=== PATIENT | male | born 1975 | race Caucasian/White ===

== ENCOUNTER 2017-07-12 15:56 | Emergency (ER) | payer BC ==
[2017-07-12] MEDS ORDERED: Sodium Chloride 0.9% 10 ML Syringe FLUSH PRN (16:17)
--- NOTE | 2017-07-12 16:18 | EDM.PDOC ---
ED HPI GENERAL MEDICAL PROBLEM - General Chief Complaint: Cardiovascular Problem Stated Complaint: DIZZY,ISSUES W/BLOOD PRESSURE Time Seen by Provider: 07/12/17 16:16 Source of Information: Reports: Patient, RN Notes Reviewed - History of Present Illness INITIAL COMMENTS - FREE TEXT/NARRATIVE: 42-year-old male comes in with symptoms of nonspecific dizziness. He feels like his blood pressure is likely running high. His does have history of hypertension. He was on medication about a year ago when his prescription ran out he did not get that refilled or do any further follow-up care at the clinic. He also does have history of type 2 diabetes. He has been on metformin in the past but also has run out of that medication quite a long time ago with no further follow-up. He does have mild to moderate frontal headache. States that his vision feels a bit "fuzzy". He's had no nausea or vomiting. No focal weakness or clumsiness. No chest pain or difficulty breathing. No abdominal pain, recent vomiting diarrhea. No voiding symptomatology. - Related Data Allergies Allergy/AdvReac Type Severity Reaction Status Date / Time No Known Allergies Allergy Verified 07/12/17 16:17 Home Meds: Home Meds Lisinopril 20 mg PO DAILY #30 tablet 07/12/17 [Rx] metFORMIN [Glucophage XR] 500 mg PO BIDMEALS #60 tab.er 07/12/17 [Rx] Past Medical History Other Genitourinary History: patient has had problems in past with urinary retention Social & Family History - Tobacco Use Smoking Status *Q: Never Smoker - Recreational Drug Use Recreational Drug Use: No ED ROS GENERAL - Review of Systems Review Of Systems: See Below Constitutional: Denies: Fever, Chills, Diaphoresis HEENT: Denies: Sinus Problem, Throat Pain, Vertigo Respiratory: Denies: Shortness of Breath, Pleuritic Chest Pain Cardiovascular: Denies: Chest Pain GI/Abdominal: Denies: Abdominal Pain, Nausea, Vomiting Musculoskeletal: Denies: Neck Pain, Shoulder Pain, Back Pain Skin: Denies: Rash Neurological: Reports: Headache. Denies: Numbness, Tingling, Trouble Speaking, Difficulty Walking, Weakness ED EXAM, DIZZINESS - Physical Exam Exam: See Below General Appearance: Alert, Mild Distress Eye Exam: Bilateral Eye: PERRL Ears: Normal External Exam Nose: Normal Inspection Throat/Mouth: Normal Inspection, Normal Oropharynx Head Exam: Atraumatic. No: Facial Swelling Neck: Supple, Full Range of Motion, Other. No: Lymphadenopathy (L), Lymphadenopathy (R) Respiratory/Chest: No Respiratory Distress (No JVD), Lungs Clear, Normal Breath Sounds Cardiovascular: Regular Rate, Rhythm GI/Abdominal: Soft, Non-Tender. No: Guarding Neurological: Alert, No Motor/Sensory Deficits, Oriented x 3 Back Exam: Normal Inspection, Full Range of Motion. No: CVA Tenderness (L), CVA Tenderness (R) Extremities: Normal Inspection. No: Pedal Edema, Leg Pain Skin Exam: Warm, Dry, No Rash EKG INTERPRETATION EKG Date: 07/12/17 Rhythm: NSR [place]: Normal P-Wave: Enlarged QRS: Normal ST-T: Normal Course - Vital Signs Last Recorded V/S: Last Vital Signs Temp 98.0 F 07/12/17 16:17 Pulse 77 07/12/17 18:40 Resp 19 07/12/17 16:17 BP 182/106 H 07/12/17 18:40 Pulse Ox 94 L 07/12/17 16:17 - Orders/Labs/Meds Labs: Laboratory Tests 07/12/17 07/12/17 07/12/17 Range/Units 16:25 16:25 17:05 WBC 7.50 (4.23-9.07) K/mm3 RBC 5.61 (4.63-6.08) M/mm3 Hgb 15.7 (13.7-17.5) gm/L Hct 43.8 (40.1-51.0) % MCV 78.1 L (79.0-92.2) fl MCH 28.0 (25.7-32.2) pg MCHC 35.8 H (32.2-35.5) g/dl RDW Std Deviation 37.3 (35.1-43.9) fL Plt Count 212 (163-337) K/mm3 MPV 9.2 L (9.4-12.3) fl Neut % (Auto) 56.9 (34.0-67.9) % Lymph % (Auto) 26.9 (21.8-53.1) % [place] % (Auto) 9.6 (5.3-12.2) % Eos % (Auto) 5.5 (0.8-7.0) Baso % (Auto) 0.7 (0.1-1.2) % Neut # (Auto) 4.27 (1.78-5.38) K/mm3 Lymph # (Auto) 2.02 (1.32-3.57) K/mm3 [place] # (Auto) 0.72 (0.30-0.82) K/mm3 Eos # (Auto) 0.41 (0.04-0.54) K/mm3 Baso # (Auto) 0.05 (0.01-0.08) K/mm3 Sodium 138 (136-145) mEq/L Potassium 3.0 L (3.5-5.1) mEq/L Chloride 100 (98-107) mEq/L Carbon Dioxide 29 (21-32) mEq/L Anion Gap 12.0 (5-15) BUN 16 (7-18) mg/dL Creatinine 1.0 (0.7-1.3) mg/dL Est Cr Clr Drug Dosing 100.38 mL/min Estimated GFR (MDRD) > 60 (>60) mL/min BUN/Creatinine Ratio 16.0 (14-18) Glucose 351 H (74-106) mg/dL POC Glucose (70-105) mg/dL Calcium 9.2 (8.5-10.1) mg/dL Total Bilirubin 0.6 (0.2-1.0) mg/dL AST 30 (15-37) U/L ALT 38 (16-63) U/L Alkaline Phosphatase 73 (46-116) U/L Total Protein 6.4 (6.4-8.2) g/dl Albumin 3.7 (3.4-5.0) g/dl Globulin 2.7 gm/dL Albumin/Globulin Ratio 1.4 (1-2) Urine Color Yellow (Yellow) Urine Appearance Clear (Clear) Urine pH 6.5 (5.0-8.0) Ur Specific [place] 1.020 (1.005-1.030) Urine Protein Trace H (Negative) Urine Glucose (UA) 3+ H (Negative) Urine Ketones Negative (Negative) Urine Occult Blood Trace-intact H (Negative) Urine Nitrite Negative (Negative) Urine Bilirubin Negative (Negative) Urine Urobilinogen 0.2 (0.2-1.0) Ur Leukocyte Esterase Negative (Negative) Urine RBC 5-10 H (0-5) /hpf Urine WBC 0-5 (0-5) /hpf Ur Epithelial Cells 0-5 (0-5) /hpf Urine Bacteria Rare (FEW) /hpf Urine Mucus Few (FEW) /hpf 07/12/17 Range/Units 19:25 WBC (4.23-9.07) K/mm3 RBC (4.63-6.08) M/mm3 Hgb (13.7-17.5) gm/L Hct (40.1-51.0) % MCV (79.0-92.2) fl MCH (25.7-32.2) pg MCHC (32.2-35.5) g/dl RDW Std Deviation (35.1-43.9) fL Plt Count (163-337) K/mm3 MPV (9.4-12.3) fl Neut % (Auto) (34.0-67.9) % Lymph % (Auto) (21.8-53.1) % [place] % (Auto) (5.3-12.2) % Eos % (Auto) (0.8-7.0) Baso % (Auto) (0.1-1.2) % Neut # (Auto) (1.78-5.38) K/mm3 Lymph # (Auto) (1.32-3.57) K/mm3 [place] # (Auto) (0.30-0.82) K/mm3 Eos # (Auto) (0.04-0.54) K/mm3 Baso # (Auto) (0.01-0.08) K/mm3 Sodium (136-145) mEq/L Potassium (3.5-5.1) mEq/L Chloride (98-107) mEq/L Carbon Dioxide (21-32) mEq/L Anion Gap (5-15) BUN (7-18) mg/dL Creatinine (0.7-1.3) mg/dL Est Cr Clr Drug Dosing mL/min Estimated GFR (MDRD) (>60) mL/min BUN/Creatinine Ratio (14-18) Glucose (74-106) mg/dL POC Glucose 266 H (70-105) mg/dL Calcium (8.5-10.1) mg/dL Total Bilirubin (0.2-1.0) mg/dL AST (15-37) U/L ALT (16-63) U/L Alkaline Phosphatase (46-116) U/L Total Protein (6.4-8.2) g/dl Albumin (3.4-5.0) g/dl Globulin gm/dL Albumin/Globulin Ratio (1-2) Urine Color (Yellow) Urine Appearance (Clear) Urine pH (5.0-8.0) Ur Specific [place] (1.005-1.030) Urine Protein (Negative) Urine Glucose (UA) (Negative) Urine Ketones (Negative) Urine Occult Blood (Negative) Urine Nitrite (Negative) Urine Bilirubin (Negative) Urine Urobilinogen (0.2-1.0) Ur Leukocyte Esterase (Negative) Urine RBC (0-5) /hpf Urine WBC (0-5) /hpf Ur Epithelial Cells (0-5) /hpf Urine Bacteria (FEW) /hpf Urine Mucus (FEW) /hpf Meds: Medications Discontinued Medications Generic Name Dose Route Start Last Admin Trade Name Freq PRN Reason Stop Dose Admin Acetaminophen 975 mg 07/12/17 16:30 07/12/17 16:40 Tylenol PO 07/12/17 16:31 975 mg NOW ONE Administration Hydromorphone HCl 0.5 mg 07/12/17 19:47 07/12/17 19:50 Dilaudid IVPUSH 07/12/17 19:48 0.5 mg ONETIME ONE Administration Insulin Human Regular 5 unit 07/12/17 18:21 07/12/17 18:27 Humulin R IVPUSH 07/12/17 18:22 5 units ONETIME ONE Administration Protocol Insulin Human Regular 6 unit 07/13/17 06:00 07/12/17 19:55 Humulin R SUBCUT 6 unit BIDAC MIMI Administration Protocol Insulin Human Regular Confirm 07/12/17 20:00 Humulin R Administered 07/12/17 20:01 Dose 300 unit .ROUTE .STK-MED ONE Labetalol HCl 20 mg 07/12/17 16:30 07/12/17 16:39 Normodyne IVPUSH 07/12/17 16:31 20 mg ONETIME ONE Administration Protocol Labetalol HCl 20 mg 07/12/17 17:09 07/12/17 17:14 Normodyne IVPUSH 07/12/17 17:10 20 mg ONETIME ONE Administration Protocol Labetalol HCl 20 mg 07/12/17 17:49 07/12/17 17:51 Normodyne IVPUSH 07/12/17 17:50 20 mg ONETIME ONE Administration Protocol Labetalol HCl 20 mg 07/12/17 18:29 07/12/17 18:40 Normodyne IVPUSH 07/12/17 18:30 20 mg ONETIME ONE Administration Protocol Lisinopril 10 mg 07/12/17 18:31 07/12/17 18:40 Prinivil PO 07/12/17 18:32 10 mg ONETIME ONE Administration Sodium Chloride 10 ml 07/12/17 16:17 07/12/17 16:39 Saline Flush FLUSH 10 ml ASDIRECTED PRN Administration Keep Vein Open - Re-Assessments/Exams Free Text/Narrative Re-Assessment/Exam: 07/12/17 20:16 Have given multiple doses of labetalol IV. Blood pressures finally come down to the 170/86 range. Glucose came back quite elevated at 350. He admits that he was on metformin in the past about a year or so ago for a period of time but then when his medication ran out did not get that refilled or renewed. It sounds like his diet has been quite horrible not much attention paid to watching his carbs or caloric intake. We did give 5 units regular insulin IV. That did bring his glucose down to 266. Give 6 units regular insulin subcutaneous. I have written a prescription to get back on metformin 500 mg twice a day initial dosage. Also written a prescription for lisinopril 20 mg daily. Asked that he follow-up the clinic hopefully in the next day or 2, next available appointment. Discharge instructions as documented. Departure - Departure Time of Disposition: 19:53 Disposition: Home, Self-Care 01 Condition: Fair Clinical Impression: Hyperglycemia Hypertension Qualifiers: Hypertension type: essential hypertension Qualified Code(s): I10 - Essential ( primary) hypertension - Discharge Information Prescriptions: Lisinopril 20 mg PO DAILY #30 tablet metFORMIN [Glucophage XR] 500 mg PO BIDMEALS #60 tab.er Instructions: Hyperglycemia, [id number], Hypertension Referrals: Manav Franks [Primary Care Provider] - Forms: ED Department Discharge Additional Instructions: Low-calorie low sugar low carbohydrate diet. [facility] does have some excellent dietary guideline information available. I did recommend looking at their website for at least some initial advice. Lisinopril 20 mg daily for hypertension. Metformin 500 mg twice daily for elevated blood sugars. I do recommend getting a blood pressure unit and checking a blood pressure 2 or 3 times daily, Sylvia a log or record for Dr. Mcgovern. Call [phone] in the morning for next available appointment to see dr Mcgovern. Return to ED as needed if symptoms worsening in any way.
[2017-07-12] MEDS ORDERED: Labetalol 100 MG/20 ML MDV IVPUSH ONE ×4 (16:30→18:29)
[2017-07-12] MEDS ORDERED: Acetaminophen 325 MG Tab PO ONE (16:30)
[2017-07-12] MEDS ORDERED: Insulin Regular, Human 100 Units/ML 3 ML Vial IVPUSH ONE (18:21)
[2017-07-12] MEDS ORDERED: Lisinopril 10 MG Tab PO ONE (18:31)
[2017-07-12 18:41] VITALS: BP 182/106
[2017-07-12] MEDS ORDERED: HYDROmorphone 0.5 MG/0.5 ML Syringe IVPUSH ONE (19:47)
[2017-07-12] MEDS ORDERED: Insulin Regular, Human 100 Units/ML 3 ML Vial ONE (20:00)
[2017-07-13] MEDS ORDERED: Insulin Regular, Human 100 Units/ML 3 ML Vial SUBCUT SCH (06:00)
== END 2017-07-12 20:14 | disposition home or self-care (01) ==
LOC: JD.ED 15:56
DX: I10 Essential (primary) hypertension (principal); E11.65 Type 2 diabetes mellitus with hyperglycemia
CPT/HCPCS: 36415; 80053; 81001; 82962; 85025; 93005; 96372; 96374; 96375; 96376; 99284; A9270; J1170; J1817; J7050; J1815

== ENCOUNTER 2017-12-06 10:34 | Emergency (ER) | payer BC ==
[2017-12-06] MEDS ORDERED: Sodium Chloride 0.9% 1,000 ML IV ONE (11:19)
[2017-12-06] MEDS ORDERED: Ondansetron 4 MG/2 ML SDV IVPUSH ONE (11:20)
[2017-12-06] MEDS ORDERED: Dicyclomine 10 MG Cap PO ONE (11:20)
--- NOTE | 2017-12-06 11:25 | EDM.PDOC ---
ED HPI GENERAL MEDICAL PROBLEM - General Chief Complaint: Abdominal Pain Stated Complaint: ABDOMINAL PAIN Time Seen by Provider: 12/06/17 11:00 Source of Information: Reports: Patient History Limitations: Reports: No Limitations - History of Present Illness INITIAL COMMENTS - FREE TEXT/NARRATIVE: Patient is a 42-year-old male presents ED complaining of lower abdominal pain. Patient states this started approximately one hour ago. Described as a tight sensation that comes and goes with no known provocation. She is mildly nauseated. Central emesis. Bowel movement yesterday and described as normal with no blood present. No diarrhea. No fever. No pain with urination. He has a history of strep catheter approximately 4 years ago due to urinary retention. States he normally has a weak flow which is unchanged with recent episode. He has no history constipation. He still has his appendix. He also has a history of non-Hodgkin's lymphoma. Past medical history: Non-Hodgkin's lymphoma, hypertension, diabetes, hypercholesteremia Current medications see list Surgical history: suprapubic catheter, neck biopsy. Patient does not smoke or use recreational drugs. Alcohol use occasionally. Lower Abdominal Pain Score (Numeric/FACES): 6 - Related Data Allergies Allergy/AdvReac Type Severity Reaction Status Date / Time aspirin Allergy Blurred Verified 12/06/17 10:48 Vision Home Meds: Home Meds Lisinopril 20 mg PO DAILY #30 tablet 07/12/17 [Rx] Ondansetron [Zofran ODT] 4 mg PO Q6H PRN #12 tab.dis 12/06/17 [Rx] Potassium Chloride [Klor-Con M20] 2 tab PO QAM #28 tab.er 12/06/17 [Rx] atorvaSTATin [Lipitor] 20 mg PO BEDTIME 12/06/17 [History] metFORMIN [Glucophage XR] 1,000 mg PO BIDMEALS 12/06/17 [History] Past Medical History HEENT History: Reports: Impaired Vision Cardiovascular History: Reports: High Cholesterol, Hypertension Other Genitourinary History: patient has had problems in past with urinary retention Oncologic (Cancer) History: Reports: Non-Hodgkin's Lymphoma, Other (See Below) Other Oncologic History: remission since 2006 Social & Family History - Tobacco Use Smoking Status *Q: Never Smoker - Caffeine Use Caffeine Use: Reports: Soda - Recreational Drug Use Recreational Drug Use: No ED ROS GENERAL - Review of Systems Review Of Systems: ROS reveals no pertinent complaints other than HPI. ED EXAM, GI/ABD - Physical Exam Exam: See Below Exam Limited By: No Limitations General Appearance: Alert, WD/WN, Mild Distress Ears: Hearing Grossly Normal Nose: Normal Inspection Throat/Mouth: Normal Voice, No Airway Compromise Neck: Normal Inspection, Supple Respiratory/Chest: No Respiratory Distress, Lungs Clear, Normal Breath Sounds, No Accessory Muscle Use Cardiovascular: Normal Peripheral Pulses, Regular Rate, Rhythm GI/Abdominal Exam: Soft, No Organomegaly, No Distention, Tender (generalized discomfort with palpation. PMI periumbilical area. ), Other (obese) (Male) Exam: Deferred Rectal (Males) Exam: Deferred Back Exam: Normal Inspection. No: CVA Tenderness (L), CVA Tenderness (R) Extremities: Normal Inspection Neurological: Alert, Oriented, CN II-XII Intact, Normal Cognition, No Motor/ Sensory Deficits Psychiatric: Normal Affect, Normal Mood Skin Exam: Warm, Dry, Intact, Normal Color Course - Vital Signs Last Recorded V/S: Last Vital Signs Temp 98.4 F 12/06/17 10:49 Pulse 89 12/06/17 11:32 Resp 16 12/06/17 10:49 BP 155/90 H 12/06/17 11:32 Pulse Ox 93 L 12/06/17 10:49 - Orders/Labs/Meds Orders: Active Orders 24 hr Category Date Time Status UA W/MICROSCOPIC [URIN] Stat Lab 12/06/17 11:19 Ordered Sodium Chloride 0.9% [Normal Saline] 1,000 ml Med 12/06/17 11:19 Active IV ONETIME Medication Orders Sodium Chloride (Normal Saline) 1,000 mls @ 250 mls/hr IV ONETIME ONE Stop: 12/06/17 15:18 Last Admin: 12/06/17 11:31 Dose: 250 mls/hr Labs: Laboratory Tests 12/06/17 12/06/17 Range/Units 11:00 11:00 WBC 8.16 (4.23-9.07) K/mm3 RBC 5.96 (4.63-6.08) M/mm3 Hgb 16.9 (13.7-17.5) gm/L Hct 46.5 (40.1-51.0) % MCV 78.0 L (79.0-92.2) fl MCH 28.4 (25.7-32.2) pg MCHC 36.3 H (32.2-35.5) g/dl RDW Std Deviation 37.1 (35.1-43.9) fL Plt Count 255 (163-337) K/mm3 MPV 9.8 (9.4-12.3) fl Neutrophils % (Manual) 63 H (40-60) % Band Neutrophils % 1 (0-10) % Lymphocytes % (Manual) 30 (20-40) % Monocytes % (Manual) 1 L (2-10) % Eosinophils % (Manual) 3 (0.8-7.0) % Basophils % (Manual) 2 H (0.2-1.2) Platelet Estimate Adequate RBC Morph Comment Normal Sodium 139 (136-145) mEq/L Potassium 2.8 L (3.5-5.1) mEq/L Chloride 100 (98-107) mEq/L Carbon Dioxide 26 (21-32) mEq/L Anion Gap 15.8 H (5-15) BUN 17 (7-18) mg/dL Creatinine 1.4 H (0.7-1.3) mg/dL Est Cr Clr Drug Dosing 73.96 mL/min Estimated GFR (MDRD) 56 (>60) mL/min BUN/Creatinine Ratio 12.1 L (14-18) Glucose 390 H (74-106) mg/dL Calcium 8.7 (8.5-10.1) mg/dL Total Bilirubin 0.9 (0.2-1.0) mg/dL AST 24 (15-37) U/L ALT 31 (16-63) U/L Alkaline Phosphatase 73 (46-116) U/L C-Reactive Protein 1.5 H* (<1.0) mg/dL Total Protein 6.7 (6.4-8.2) g/dl Albumin 4.0 (3.4-5.0) g/dl Globulin 2.7 gm/dL Albumin/Globulin Ratio 1.5 (1-2) Lipase 866 H (73-393) U/L Meds: Medications Generic Name Dose Route Start Last Admin Trade Name Freq PRN Reason Stop Dose Admin Sodium Chloride 1,000 mls @ 250 mls/hr 12/06/17 11:19 12/06/17 11:31 Normal Saline IV 12/06/17 15:18 250 mls/hr ONETIME ONE Administration Discontinued Medications Generic Name Dose Route Start Last Admin Trade Name John PRN Reason Stop Dose Admin Dicyclomine HCl 10 mg 12/06/17 11:20 12/06/17 11:31 Bentyl PO 12/06/17 11:21 10 mg ONETIME ONE Administration Ondansetron HCl 4 mg 12/06/17 11:20 12/06/17 11:29 Zofran IVPUSH 12/06/17 11:21 4 mg ONETIME ONE Administration Potassium Chloride 40 meq 12/06/17 12:25 12/06/17 12:35 Klor-Con M20 PO 12/06/17 12:26 40 meq ONETIME ONE Administration - Re-Assessments/Exams Free Text/Narrative Re-Assessment/Exam: IV established with and asked. Bentyl 10 mg by mouth and 4 mg IVP Zofran. Labs to be obtained include CBC, chem 14, CRP, lipase, UA, and 2 view of the abdomen x-ray. Labs reviewed: Sodium 139, potassium 2.8, AG 15.8, CO2 normal, creatinine elevated at 1.4, glucose elevated at 390, CRP 1.5, lipase elevated at 866. I have ordered potassium 40 mEq by mouth. In addition patient is a type II diabetic on metformin 500 mg twice a day. Blood sugars are not well-controlled. He is not showing signs of dehydration. Of note at times he does experience some polyuria and polydipsia. Lipase is mildly elevated. He has no epigastric discomfort. I have offered to obtain a CT of the abdomen and pelvis with IV and oral contrast to evaluate cause of the pain. X-ray of the abdomen did reveal findings for increased stool within the colon. Nonspecific air pattern. He has refused ct of the abdomen. Will follow with PCP. I have discussed with the patient lipitor can cause a form of pancreatitis. Orderd mag citrate to be administered here in the E.D. discharge instructions as documented. Departure - Departure Time of Disposition: 12:41 Disposition: Home, Self-Care 01 Condition: Good Clinical Impression: Hypokalemia, Abdominal pain in male, Hyperglycemia Constipation Qualifiers: Constipation type: unspecified constipation type Qualified Code(s): K59.00 - Constipation, unspecified Hyperglycemia due to type 2 diabetes mellitus Qualifiers: Diabetes mellitus pharmacologist insulin use: without pharmacologist use Qualified Code(s ): E11.65 - Type 2 diabetes mellitus with hyperglycemia - Discharge Information Prescriptions: Ondansetron [Zofran ODT] 4 mg PO Q6H PRN #12 tab.dis PRN Reason: Nausea/Vomiting Potassium Chloride [Klor-Con M20] 2 tab PO QAM #28 tab.er Instructions: High-Fiber Diet, Preventing Type 2 Diabetes Mellitus, Diabetes and Exercise-SportsMed, Constipation, Adult, Hyperglycemia, [id number], Abdominal Pain, Adult, [id number], Type 2 Diabetes Mellitus, Self Care, Adult , Potassium Content of Foods, Probiotics, Diabetes Mellitus and Nutrition Referrals: Manav Franks [Primary Care Provider] - Forms: ED Department Discharge Additional Instructions: As discussed labs did indicate potassium levels were low. Will Start you on a oral supplement of potassium daily includin mEq by mouth every day for the next 2 weeks. Blood sugars were 390 while evaluated in the ED. This means blood sugars are not well controlled. Suggest following up with your primary care provider this week to discuss increasing metformin and starting you on insulin. This can be controlled with decreasing weight and exercising as well. X-ray of the abdomen revealed increased stool pattern to the right hemicolon with nonspecific air pattern. No concerns for obstruction at this point since you are passing gas and having bowel movements. You were administered mag citrate while in the ED. This should facilitate a bowel movement within the next hour to 2. Will start you on MiraLAX one capful every day with copious amounts of water. Increase the fiber in your diet. Exercise daily half-hour to 45 minutes. Lipase was elevated. You had no pain along the pancreases. Elevation of the lipase may lead to pancreatitis. This maybe related to Diabetes and taking the lipitor. Labs to be repeated this week by PCP include BMP and lipase. - My Orders Last 24 Hours: My Active Orders 12/06/17 11:19 UA W/MICROSCOPIC [URIN] Stat Sodium Chloride 0.9% [Normal Saline] 1,000 ml IV ONETIME - Assessment/Plan Last 24 Hours: My Active Orders 12/06/17 11:19 UA W/MICROSCOPIC [URIN] Stat Sodium Chloride 0.9% [Normal Saline] 1,000 ml IV ONETIME
[2017-12-06] MEDS ORDERED: Potassium Chloride 20 MEQ Tab.ER PO ONE (12:25)
--- NOTE | 2017-12-06 12:41 | CR ---
Abdomen: Supine and upright views of the abdomen were obtained. Comparison: No previous study. Several gas-filled loops of small bowel are seen which are felt to be within normal limits. Bowel gas pattern is otherwise unremarkable. No free air is seen. Bony structures are unremarkable. No abnormal calcifications are seen. Impression: 1. Nothing acute is seen on two-view abdominal x-ray. Diagnostic code #2
[2017-12-06] MEDS ORDERED: Magnesium Citrate Solution 296 ML Bottle PO ONE (13:04)
[2017-12-06 13:13] VITALS: BP 171/95
== END 2017-12-06 13:15 | disposition home or self-care (01) ==
LOC: JD.ED 10:34
DX: K59.00 Constipation, unspecified (principal); E11.65 Type 2 diabetes mellitus with hyperglycemia; I10 Essential (primary) hypertension; E87.6 Hypokalemia; E78.00 Pure hypercholesterolemia, unspecified; Z79.82 Long term (current) use of aspirin; Z79.899 Other long term (current) drug therapy
CPT/HCPCS: 36415; 74019; 80053; 83690; 85007; 85027; 86140; 96361; 96374; 99284; A9270; J2405; J7040

== ENCOUNTER 2018-08-23 13:35 | Inpatient (IN) | payer BC ==
[2018-08-23] MEDS ORDERED: Insulin Regular, Human 100 Units/ML 3 ML Vial SUBCUT ONE (13:59)
[2018-08-23] MEDS ORDERED: Lactated Ringers 1,000 ML IV SCH (14:00)
--- NOTE | 2018-08-23 14:00 | EDM.PDOC ---
ED HPI GENERAL MEDICAL PROBLEM - General Chief Complaint: Respiratory Problem Stated Complaint: BLOOD SUGAR AND BLOOD PRESSURE HIGH AND INFLUENZA Time Seen by Provider: 08/23/18 13:53 Source of Information: Reports: Patient History Limitations: Reports: No Limitations - History of Present Illness INITIAL COMMENTS - FREE TEXT/NARRATIVE: 43-year-old male presents to the ED at the request of his primary care physician Dr. Cho from [facility]. Patient is been ill since last August 18 when he came down with high fever bodyaches and productive cough. He had a mild to moderate associated headache. Did lose his appetite nearly completely. He did attend the clinic this morning due to continued paroxysmal cough. He feels the fever has broken. He was diagnosed positive for influenza A virus this morning present the tail end of his illness. The patient is a type II diabetic and found to be in poor control with a blood sugar 364. He is volume depleted and was sent over to the hospital ED for further assessment and likely admission to the hospital. Patient does not check his blood sugars and therefore he does not know how well his sugar control is. He has polyuria all the time and polydipsia. He takes metformin 500 mg twice a day. Lab work done at the clinic revealed a normal white count with 62% neutrophils by automated differential. His MCV was low at 77.2 suggesting an iron deficiency. Likely most related protein was not checked. Patient has mild orthostatic hypotension. Her pressure is elevated at 171/98. He takes lisinopril 20 mg daily for his blood pressure. He is also on anti-cholesterol medication with atorvastatin .He states his cough is paroxysmal and occasionally productive of yellow-green sputum as well as occasional traces of hemoptysis. These his ribs and abdominal wall muscles are sore from coughing so much as is his central chest. Onset: Sudden Onset Date: 08/18/18 (Sudden onset of fever chills generalized myalgia mild headache and then loss of appetite over the ensuing days.) Duration: Day(s):, Other (Just not getting better.) Location: Reports: Chest (Continued paroxysmal productive cough). Denies: Upper Extremity, Left, Upper Extremity, Right, Lower Extremity, Left, Lower Extremity, Right Quality: Reports: Other Severity: Moderate (Dull ache in central chest) Improves with: Reports: None Worsens with: Reports: Other Context: Reports: Other (Spontaneous occurrence of illness last .). Denies: Activity, Exercise, Lifting, Sick Contact, Trauma Associated Symptoms: Reports: Chest Pain (From ), Cough (coughing.), cough w sputum, Diaphoresis (Yellow green with occasional hemoptysis), Fever/Chills, Headaches (Initial onset of illness but not the last day.), Loss of Appetite ( Mild headache at present), Malaise, Shortness of Breath, Weakness, Other (Dizzy with standing). Denies: Confusion, Nausea/Vomiting, Rash, Seizure, Syncope - Related Data Allergies Allergy/AdvReac Type Severity Reaction Status Date / Time aspirin Allergy Blurred Verified 12/06/17 10:48 Vision Home Meds: Home Meds Lisinopril 20 mg PO DAILY #30 tablet 07/12/17 [Rx] atorvaSTATin [Lipitor] 20 mg PO BEDTIME 12/06/17 [History] metFORMIN [Glucophage XR] 1,000 mg PO BIDMEALS 12/06/17 [History] Past Medical History HEENT History: Reports: Impaired Vision Cardiovascular History: Reports: High Cholesterol, Hypertension Other Genitourinary History: patient has had problems in past with urinary retention Oncologic (Cancer) History: Reports: Non-Hodgkin's Lymphoma, Other (See Below) Other Oncologic History: remission since 2006 Social & Family History - Caffeine Use Caffeine Use: Reports: Soda - Living Situation & Occupation Living situation: Reports: Occupation: Employed [employer] [facility] - Review of Systems Review Of Systems: See Below Constitutional: Reports: Fever, Chills, Malaise (With initial onset of illness but not the last day or so.), Weakness, Fatigue, Decreased Appetite, Weight Loss , Other (Dizziness) HEENT: Reports: Glasses Respiratory: Reports: Shortness of Breath, Cough, Sputum (Yellow greenish in color.), Hemoptysis (Occasional streaks of blood with coughing so hard). Denies : Wheezing, Pleuritic Chest Pain Cardiovascular: Reports: Chest Pain, Blood Pressure Problem (Central chest pain from coughing), Lightheadedness. Denies: Claudication, Edema, Orthopnea Endocrine: Reports: Fatigue, High Glucose (Covered at the clinic today be to be 364) GI/Abdominal: Reports: Decreased Appetite : Reports: Frequency, Other (Polyuria) Musculoskeletal: Reports: Other Skin: Reports: No Symptoms (Occasional cramps in his lower legs.) Neurological: Reports: Dizziness, Headache (I'll headache only.) Psychiatric: Reports: No Symptoms Hematologic/Lymphatic: Reports: No Symptoms Immunologic: Reports: No Symptoms ED EXAM, GENERAL - Physical Exam Exam: See Below Exam Limited By: No Limitations General Appearance: Alert, WD/WN, Mild Distress, Other (He has a very ruborous complexion particularly hadn't face. He feels very slightly warm to palpation.) Eye Exam: Bilateral Eye: Normal Inspection Ears: Normal TMs Throat/Mouth: Other (Tongue is coated and dry. Oropharynx is slightly erythematous without exudate). No: Normal Inspection, Normal Lips, Normal Oropharynx Head: Atraumatic, Normocephalic Neck: Normal Inspection, Supple, Non-Tender, Full Range of Motion. No: Lymphadenopathy (L), Lymphadenopathy (R) Respiratory/Chest: Chest Non-Tender, Respiratory Distress, Rhonchi (Few rhonchi appreciated posterior right lung field.). No: Decreased Breath Sounds, Crackles , Rales Cardiovascular: Normal Peripheral Pulses, Regular Rate, Rhythm, No Edema, No Gallop, No Murmur, No Rub Peripheral Pulses: 3+: Posterior Tibial (L), Posterior Tibial (R), Dorsalis Pedis (L), Dorsalis Pedis (R) GI/Abdominal: Normal Bowel Sounds, Soft, Non-Tender, No Organomegaly, No Abnormal Bruit, No Mass, Pelvis Stable Back Exam: Normal Inspection, Full Range of Motion. No: CVA Tenderness (L), CVA Tenderness (R) Extremities: Normal Inspection, Normal Range of Motion, Non-Tender, No Pedal Edema Neurological: Alert, Oriented, CN II-XII Intact, Normal Cognition Psychiatric: Normal Affect, Normal Mood Skin Exam: Warm, Dry, Intact, Normal Color, No Rash EKG INTERPRETATION EKG Date: 08/23/18 Time: 14:06 Rhythm: NSR Rate (Beats/Min): 76 [place]: Normal P-Wave: Present QRS: Other (There is a near Q-wave in V1 and a Q wave in V2. 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 T wave flattening 1 and V6 and T-wave inversion in aVL all nonspecific findings) QT: Prolonged EKG Interpretation Comments: Abnormal ECG Course - Vital Signs Last Recorded V/S: Last Vital Signs Temp 36.6 C 08/23/18 13:50 Pulse 79 08/23/18 13:50 Resp 20 08/23/18 13:50 BP 175/100 H 08/23/18 16:57 Pulse Ox 99 08/23/18 13:50 Orthostatic Blood Pressure [ 152/88 Standing] Orthostatic Blood Pressure [ 159/104 Sitting] Orthostatic Blood Pressure [ 151/93 Supine] - Orders/Labs/Meds Orders: Active Orders 24 hr Category Date Time Status Admission Status [Patient Status] [ADT] Routine ADT 08/23/18 17:30 Ordered EKG Documentation Completion [RC] STAT Care 08/23/18 13:58 Active Orthostatic Vital Signs [RC] ASDIRECTED Care 08/23/18 13:53 Active Lactated Ringers [Ringers, Lactated] 1,000 ml Med 08/23/18 14:00 Active IV ASDIRECTED Sodium Chloride 0.9% with KCl [Normal Saline with 40 Med 08/23/18 16:30 Active mEq KCl] 1,000 ml IV ASDIRECTED Medication Orders Lactated Ringer's (Ringers, Lactated) 1,000 mls @ 999 mls/hr IV ASDIRECTED MIMI Last Admin: 08/23/18 14:31 Dose: 999 mls/hr Potassium Chloride/Sodium Chloride (Normal Saline With 40 Meq Kcl) 1,000 mls @ 100 mls/hr IV ASDIRECTED MIMI Last Admin: 08/23/18 16:34 Dose: 100 mls/hr Labs: Laboratory Tests 08/23/18 08/23/18 08/23/18 Range/Units 14:20 14:20 14:20 WBC (4.23-9.07) K/mm3 RBC (4.63-6.08) M/mm3 Hgb (13.7-17.5) gm/L Hct (40.1-51.0) % MCV (79.0-92.2) fl MCH (25.7-32.2) pg MCHC (32.2-35.5) g/dl RDW Std Deviation (35.1-43.9) fL Plt Count (163-337) K/mm3 MPV (9.4-12.3) fl Neutrophils % (Manual) (40-60) % Band Neutrophils % (0-10) % Lymphocytes % (Manual) (20-40) % Atypical Lymphs % % Monocytes % (Manual) (2-10) % Eosinophils % (Manual) (0.8-7.0) % Basophils % (Manual) (0.2-1.2) Platelet Estimate RBC Morph Comment Sodium 138 (136-145) mEq/L Potassium 3.2 L (3.5-5.1) mEq/L Chloride 100 (98-107) mEq/L Carbon Dioxide 26 (21-32) mEq/L Anion Gap 15.2 H (5-15) BUN 11 (7-18) mg/dL Creatinine 1.1 (0.7-1.3) mg/dL Est Cr Clr Drug Dosing 93.17 mL/min Estimated GFR (MDRD) > 60 (>60) mL/min BUN/Creatinine Ratio 10.0 L (14-18) Glucose 343 H (74-106) mg/dL POC Glucose (70-105) mg/dL Hemoglobin A1c 9.80 H (4.50-6.20) % Serum Osmolality 296 (280-300) mosm/kg Lactic Acid (0.4-2.0) mmol/L Calcium 8.7 (8.5-10.1) mg/dL Magnesium 1.6 L (1.8-2.4) mg/dl Iron 46 L (65-175) ug/dL TIBC 301 (100-400) ug/dL % Saturation 15 L (20-55) % Transferrin 241 (202-364) mg/dL Total Bilirubin 0.8 (0.2-1.0) mg/dL AST 26 (15-37) U/L ALT 39 (16-63) U/L Alkaline Phosphatase 82 (46-116) U/L Troponin I < 0.017 (0.00-0.056) ng/mL C-Reactive Protein 1.0 (<1.0) mg/dL Total Protein 6.8 (6.4-8.2) g/dl Albumin 3.8 (3.4-5.0) g/dl Globulin 3.0 gm/dL Albumin/Globulin Ratio 1.3 (1-2) Ketones (0.0-0.3) mM 08/23/18 08/23/18 08/23/18 Range/Units 14:20 14:20 14:20 WBC 5.75 (4.23-9.07) K/mm3 RBC 5.72 (4.63-6.08) M/mm3 Hgb 16.1 (13.7-17.5) gm/L Hct 44.8 (40.1-51.0) % MCV 78.3 L (79.0-92.2) fl MCH 28.1 (25.7-32.2) pg MCHC 35.9 H (32.2-35.5) g/dl RDW Std Deviation 37.1 (35.1-43.9) fL Plt Count 200 (163-337) K/mm3 MPV 9.4 (9.4-12.3) fl Neutrophils % (Manual) 52 (40-60) % Band Neutrophils % 0 (0-10) % Lymphocytes % (Manual) 43 H (20-40) % Atypical Lymphs % 0 % Monocytes % (Manual) 5 (2-10) % Eosinophils % (Manual) 0 L (0.8-7.0) % Basophils % (Manual) 0 L (0.2-1.2) Platelet Estimate Adequate RBC Morph Comment Normal Sodium (136-145) mEq/L Potassium (3.5-5.1) mEq/L Chloride (98-107) mEq/L Carbon Dioxide (21-32) mEq/L Anion Gap (5-15) BUN (7-18) mg/dL Creatinine (0.7-1.3) mg/dL Est Cr Clr Drug Dosing mL/min Estimated GFR (MDRD) (>60) mL/min BUN/Creatinine Ratio (14-18) Glucose (74-106) mg/dL POC Glucose (70-105) mg/dL Hemoglobin A1c (4.50-6.20) % Serum Osmolality (280-300) mosm/kg Lactic Acid 1.7 (0.4-2.0) mmol/L Calcium (8.5-10.1) mg/dL Magnesium (1.8-2.4) mg/dl Iron (65-175) ug/dL TIBC (100-400) ug/dL % Saturation (20-55) % Transferrin (202-364) mg/dL Total Bilirubin (0.2-1.0) mg/dL AST (15-37) U/L ALT (16-63) U/L Alkaline Phosphatase (46-116) U/L Troponin I (0.00-0.056) ng/mL C-Reactive Protein (<1.0) mg/dL Total Protein (6.4-8.2) g/dl Albumin (3.4-5.0) g/dl Globulin gm/dL Albumin/Globulin Ratio (1-2) Ketones 0.17 (0.0-0.3) mM 08/23/18 08/23/18 08/23/18 Range/Units 14:29 16:15 16:33 WBC (4.23-9.07) K/mm3 RBC (4.63-6.08) M/mm3 Hgb (13.7-17.5) gm/L Hct (40.1-51.0) % MCV (79.0-92.2) fl MCH (25.7-32.2) pg MCHC (32.2-35.5) g/dl RDW Std Deviation (35.1-43.9) fL Plt Count (163-337) K/mm3 MPV (9.4-12.3) fl Neutrophils % (Manual) (40-60) % Band Neutrophils % (0-10) % Lymphocytes % (Manual) (20-40) % Atypical Lymphs % % Monocytes % (Manual) (2-10) % Eosinophils % (Manual) (0.8-7.0) % Basophils % (Manual) (0.2-1.2) Platelet Estimate RBC Morph Comment Sodium (136-145) mEq/L Potassium (3.5-5.1) mEq/L Chloride (98-107) mEq/L Carbon Dioxide (21-32) mEq/L Anion Gap (5-15) BUN (7-18) mg/dL Creatinine (0.7-1.3) mg/dL Est Cr Clr Drug Dosing mL/min Estimated GFR (MDRD) (>60) mL/min BUN/Creatinine Ratio (14-18) Glucose 270 H (74-106) mg/dL POC Glucose 360 H 304 H (70-105) mg/dL Hemoglobin A1c (4.50-6.20) % Serum Osmolality (280-300) mosm/kg Lactic Acid (0.4-2.0) mmol/L Calcium (8.5-10.1) mg/dL Magnesium (1.8-2.4) mg/dl Iron (65-175) ug/dL TIBC (100-400) ug/dL % Saturation (20-55) % Transferrin (202-364) mg/dL Total Bilirubin (0.2-1.0) mg/dL AST (15-37) U/L ALT (16-63) U/L Alkaline Phosphatase (46-116) U/L Troponin I (0.00-0.056) ng/mL C-Reactive Protein (<1.0) mg/dL Total Protein (6.4-8.2) g/dl Albumin (3.4-5.0) g/dl Globulin gm/dL Albumin/Globulin Ratio (1-2) Ketones (0.0-0.3) mM Meds: Medications Generic Name Dose Route Start Last Admin Trade Name Freq PRN Reason Stop Dose Admin Lactated Ringer's 1,000 mls @ 999 mls/hr 08/23/18 14:00 08/23/18 14:31 Ringers, Lactated IV 999 mls/hr ASDIRECTED MIMI Administration Potassium Chloride/Sodium Chloride 1,000 mls @ 100 mls/hr 08/23/18 16:30 06/01 16:34 Normal Saline With 40 Meq Kcl IV 100 mls/hr ASDIRECTED MIMI Administration Discontinued Medications Generic Name Dose Route Start Last Admin Trade Name Freq PRN Reason Stop Dose Admin Amlodipine Besylate 10 mg 08/23/18 16:28 08/23/18 16:57 Norvasc PO 08/23/18 16:29 10 mg ONETIME ONE Administration Hydralazine HCl 10 mg 08/23/18 16:18 08/23/18 16:34 Apresoline IVPUSH 08/23/18 16:19 10 mg ONETIME ONE Administration Insulin Human Regular 10 unit 08/23/18 13:59 08/23/18 14:30 Humulin R SUBCUT 08/23/18 14:00 10 units ONETIME ONE Administration - Radiology Interpretation Free Text/Narrative:: 43-year-old male presents to the ED at the request of his primary care physician Dr. Cho. She presented to the clinic this morning with a illness since last . This was associated with high fever paroxysmal cough generalized myalgia with mild headache and loss of appetite. Clinically he sounded like he probably had influenza and he proved influenza A positive on check this morning. He is the tail end of this illness although he still has a very productive cough of yellow greenish sputum and is feeling very weak. Secondly he is a type II diabetic poorly controlled by history with no checking of his blood sugars. Blood sugar was found to be elevated at 364. Patient is symptomatic with polyuria and polydipsia for many weeks. Upper collected the clinic revealed a normal white count and differential. His MCV was low at 77.2 suggesting underlying iron deficiency. Plan he is volume depleted mildly orthostatic. IV will be Ringer's lactate at open. Will give him 10 units of regular insulin subcutaneous to bring down his blood sugars. You are two-view chest x-ray carried out to make sure he does not have pneumonia. Routine labs including serum osmolality serum ketones and serum lactic acid to be done as well as a glycosylated protein. - Re-Assessments/Exams Free Text/Narrative Re-Assessment/Exam: 08/23/18 15:15 chest x-ray reveals a little bit of infiltrate around the left pulmonary artery. No definitive pneumonia appreciated. Both pulmonary arteries are fairly prominent. Cardiac silhouette is normal in size. There is no pneumonia. 08/23/18 15:29 white blood cell count is 5.75 with 52% neutrophils and no band cells reported. Abdomen is 16.1 hematocrit is 44.8. MCV is slightly low at 78.3 suggesting possible iron deficiency. Sodium was 138 with a potassium of 3.2. Chloride is 100 with a bicarbonate 26. And a gap is 15.2. B1 is 11th creatinine of 1.1. GFR is greater than 60. BUN/creatinine ratio is 10.0. Glucose was 343 in the lab in 360 at the bedside. Serum osmolality is pending. Lactic acid 1.7. Calcium 8.7. Magnesium 1.6 slightly low. Bilirubin 0.8 AST 26 ALT of 39 and alk phosphatase 82. Troponin I is less than 0.017. C-reactive protein is 1.0. Serum ketones at 0.17 08/23/18 16:09 hemoglobin A1c is 9.8 indicating diabetes is in very poor control. Patient would likely benefit from insulin treatment versus metformin.. 08/23/18 16:16 blood sugar at present is 303. I believe he needs to come in to hospital to learn how to start insulin he is in agreement with this. The other problem is uncontrolled hypertension. BP is 187/105.Will give him Hydrlazine 10mg IV. 08/23/18 16:30 with on-call hospice Dr. Hughes and decision made to admit the patient to [facility] on telemetry unit. Will need monitoring of his blood pressure and I feel a need to start insulin to bring his diabetes under control. His glycosylated protein is well over 9 at 9.8. He states he's been faithful with the metformin twice a day and it's not been able to control his blood pressure. He reports a 5 pound weight loss over the last week and probably 20 pounds over the last 4 months. I'm also going to give him Norvasc 10 mg by mouth for blood pressure control. 08/23/18 17:32 his current blood pressure had been down as low as 175/95. Is currently 170 02/13/12. Give Vasotec 1.25 mg IV. 08/23/18 17:33 Departure - Departure Time of Disposition: 17:34 Disposition: Admitted As Inpatient 67 Condition: Fair Clinical Impression: Influenza A, Uncontrolled hypertension, Iron deficiency Uncontrolled type 2 diabetes mellitus Qualifiers: Glycemic state: with hyperglycemia Qualified Code(s): E11.65 - Type 2 diabetes mellitus with hyperglycemia - Discharge Information *PRESCRIPTION DRUG MONITORING PROGRAM REVIEWED*: Not Applicable *COPY OF PRESCRIPTION DRUG MONITORING REPORT IN PATIENT MUNA: Not Applicable Referrals: Mark Galicia Jr, MD [Primary Care Provider] - Forms: ED Department Discharge - My Orders Last 24 Hours: My Active Orders 08/23/18 13:53 Orthostatic Vital Signs [RC] ASDIRECTED 08/23/18 13:58 EKG Documentation Completion [RC] STAT 08/23/18 14:00 Lactated Ringers [Ringers, Lactated] 1,000 ml IV ASDIRECTED 08/23/18 16:30 Sodium Chloride 0.9% with KCl [Normal Saline with 40 mEq KCl] 1,000 ml IV ASDIRECTED 08/23/18 17:30 Admission Status [Patient Status] [ADT] Routine - Assessment/Plan Last 24 Hours: My Active Orders 08/23/18 13:53 Orthostatic Vital Signs [RC] ASDIRECTED 08/23/18 13:58 EKG Documentation Completion [RC] STAT 08/23/18 14:00 Lactated Ringers [Ringers, Lactated] 1,000 ml IV ASDIRECTED 08/23/18 16:30 Sodium Chloride 0.9% with KCl [Normal Saline with 40 mEq KCl] 1,000 ml IV ASDIRECTED 08/23/18 17:30 Admission Status [Patient Status] [ADT] Routine
--- NOTE | 2018-08-23 15:24 | CR ---
Chest: Two views of the chest were obtained. Comparison: No prior chest x-ray. Heart size and mediastinum are normal. Infusion port is seen entering from the left side. Tip lies within the superior vena cava. Lungs are clear with no acute parenchymal change. Slight scoliosis and minimal degenerative change is seen within the spine. Impression: 1. Findings as noted above. Nothing acute is appreciated. Diagnostic code #2
[2018-08-23 15:32] LABS: HEMOGLOBIN A1C 9.8 % (4.50-6.20)
[2018-08-23] MEDS ORDERED: hydrALAZINE 20 MG/ML SDV IVPUSH ONE (16:18)
[2018-08-23] MEDS ORDERED: amLODIPine 10 MG Tab PO ONE (16:28)
[2018-08-23] MEDS: Sodium Chloride 0.9% with KCl 1,000 ML IV SCH (16:34)
[2018-08-23] MEDS ORDERED: Enalaprilat 1.25 MG/ML SDV IVPUSH ONE (17:33)
[2018-08-23] MEDS ORDERED: LORazepam 2 MG/ML SDV IVPUSH PRN (18:24)
[2018-08-23] MEDS ORDERED: Metoprolol Tartrate 5 MG/5 ML SDV IVPUSH PRN (18:24)
[2018-08-23] MEDS ORDERED: Promethazine 6.25 MG in Sodium Chloride 0.9% 50 ML IV PRN (18:25)
[2018-08-23] MEDS ORDERED: Bisacodyl 5 MG Tab PO PRN (18:25)
[2018-08-23] MEDS ORDERED: Ondansetron 4 MG/2 ML SDV IV PRN (18:25)
[2018-08-23] MEDS ORDERED: Albuterol/Ipratropium 3.0-0.5 MG/3 ML Neb Soln NEB PRN (18:25)
[2018-08-23] MEDS ORDERED: Temazepam 7.5 MG Cap PO PRN (18:25)
[2018-08-23] MEDS ORDERED: Acetaminophen/HYDROcodone 325-5 MG Tab PO PRN (18:25)
[2018-08-23] MEDS ORDERED: Docusate Sodium 100 MG Cap PO PRN (18:25)
[2018-08-23] MEDS ORDERED: LORazepam 2 MG/ML SDV IV PRN (18:25)
[2018-08-23] MEDS ORDERED: Polyethylene Glycol 3350 Powder 17 GM Packet PO PRN (18:25)
[2018-08-23] MEDS ORDERED: HYDROmorphone 1 MG/ML Syringe IVPUSH PRN (18:25)
[2018-08-23] MEDS ORDERED: Magnesium Oxide 400 MG Tab PO ONE (19:00)
[2018-08-23] MEDS ORDERED: cloNIDine 0.3 MG/Day Transdermal Patch TRDERM ONE (19:02)
[2018-08-23] MEDS ORDERED: cloNIDine 0.1 MG Tab PO ONE (19:02)
[2018-08-23] MEDS ORDERED: guaiFENesin/Dextromethorphan 100-10 MG/5 ML Soln 5 ML Cup PO PRN (19:04)
[2018-08-23 19:37] LABS: VITAMIN D,25-HYDROXY 13.4 ng/ml (30.0-100.0)
[2018-08-23] MEDS ORDERED: Oxymetazoline 0.05% Nasal Spray 30 ML Bottle NAS PRN (19:52)
[2018-08-23] MEDS: Potassium Chloride 20 MEQ Tab.ER PO SCH ×2 (20:07→22:46)
--- NOTE | 2018-08-23 20:45 | PCM.HP ---
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 His symptoms started 5 days ago. He has not received treatment for antiviral agent. He takes 500 mg of Metformin BID. He seldom checks his glucose but on presentation he was found to in the 300s. While in ED, he was noted to have uncontrolled blood with SBPs in the 180s and DBPs in the triple digits. His initial work up in ED shows a CBC remarkable for MCV of 78.3, MCHC of 35.9, and Neutrophils of 43%. His chemistry is significant fo K of 3.2, AG of 15.2, BS of 343, A1C of 9.80, Mg of 106, and Iron of 46. His ketones level is 0.17. He received initial treatment before he was sent to the floor for further treatment. He is being admitted for acute viral illness, malignant hypertension and hyperglycemia due to DM2. 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 Cardiovascular History: Reports: High Cholesterol, Hypertension Respiratory History: Reports: Asthma Gastrointestinal History: Reports: Other (See Below) Other Gastrointestinal History: occasional acid reflux Genitourinary History: Reports: Other (See Below) Other Genitourinary History: patient has had problems in past with urinary retention Endocrine/Metabolic History: Reports: Diabetes, Type II, Obesity/BMI 30+ Oncologic (Cancer) History: Reports: Non-Hodgkin's Lymphoma, Other (See Below) Other Oncologic History: remission since 2006 - Infectious Disease History Infectious Disease History: Reports: Influenza - Past Surgical History HEENT Surgical History: Reports: Other (See Below) Other HEENT Surgeries/Procedures: injection to right eye Cardiovascular Surgical History: Reports: None Respiratory Surgical History: Reports: None GI Surgical History: Reports: None Male Surgical History: Reports: None Endocrine Surgical History: Reports: None Social & Family History - Family History Family Medical History: Noncontributory - Tobacco Use Smoking Status *Q: Never Smoker - Caffeine Use Caffeine Use: Reports: Soda - Recreational Drug Use Recreational Drug Use: No - Living Situation & Occupation Living situation: Reports: Occupation: Employed H&P Review of Systems - Review of Systems: Review Of Systems: See Below General: Reports: Fever, Chills, Malaise, Weakness, Decreased Appetite HEENT: Reports: No Symptoms Pulmonary: Reports: Cough. Denies: Shortness of Breath Cardiovascular: Denies: Chest Pain, Dyspnea on Exertion, Edema, Lightheadedness Gastrointestinal: Denies: Abdominal Pain, Constipation, Diarrhea, Nausea, Vomiting Genitourinary: Reports: No Symptoms Musculoskeletal: Denies: Neck Pain, Joint Pain, Joint Swelling, Muscle Pain, Muscle Stiffness Skin: Reports: Dryness. Denies: Cyanosis, Jaundice, Mottled, Pallor, Diaphoresis, Bruising, Pruritis, Rash, Erythema, Wound, Change in Color, Change in Hair/Nails, Lesions, Urticaria Psychiatric: Denies: Depression, Anxiety, Agitation, Hallucinations Neurological: Reports: Dizziness, Headache, Weakness. Denies: Confusion, Numbness, Seizure, Syncope, Tingling, Tremors, Trouble Speaking, Difficulty Walking, Change in Speech, Gait Disturbance Hematologic/Lymphatic: Reports: No Symptoms Immunologic: Reports: No Symptoms Exam - Exam Exam: See Below - Vital Signs Vital Signs: Last Vital Signs Temp 36.8 C 08/23/18 18:56 Pulse 84 08/23/18 18:58 Resp 20 08/23/18 18:56 BP 189/104 H 08/23/18 20:09 Pulse Ox 92 L 08/23/18 18:58 Orthostatic Blood Pressure [ 152/88 Standing] Orthostatic Blood Pressure [ 159/104 Sitting] Orthostatic Blood Pressure [ 151/93 Supine] Weight: 115.757 kg - Exam General: Alert, Oriented, Cooperative, Other (Obese) HEENT: Conjunctiva Clear, EACs Clear, EOMI, Hearing Intact, Mucosa Moist & [place] , Posterior Pharynx Clear, Pupils Equal, Pupils Reactive, Other (he sounds congested). No: Normal Nasal Septum Neck: Supple, Trachea Midline, +2 Carotid Pulse wo Bruit Lungs: Clear to Auscultation, Normal Respiratory Effort, Other (dry cough) Cardiovascular: Regular Rate, Regular Rhythm GI/Abdominal Exam: Normal Bowel Sounds, Soft, Non-Tender, No Organomegaly, No Distention, No Abnormal Bruit, Other (Obese) (Male) Exam: Circumcised, Other (narrow urethral meatus). No: Penile Lesions , Rash, Scrotal Swelling, Scrotum Tenderness (L), Scrotum Tenderness (R), Suprapubic Fullness, Testicular Mass, Testicular Tenderness (L), Urethral Discharge Rectal (Males) Exam: Deferred Back Exam: Normal Inspection, Decreased Range of Motion Extremities: Normal Inspection, Normal Range of Motion, Non-Tender, No Pedal Edema, Normal Capillary Refill Peripheral Pulses: 2+: Posterior Tibial (L), Posterior Tibial (R), Dorsalis Pedis (L), Dorsalis Pedis (R) Skin: Warm, Dry, Intact Neuro Extensive - Mental Status: Oriented x3, Normal Cognition, Memory Intact Psychiatric: Alert, Normal Affect, Normal Mood - Patient Data Lab Results Last 24 hrs: Laboratory Results - last 24 hr 08/23/18 08/23/18 08/23/18 Range/Units 14:20 14:20 14:20 WBC (4.23-9.07) K/mm3 RBC (4.63-6.08) M/mm3 Hgb (13.7-17.5) gm/L Hct (40.1-51.0) % MCV (79.0-92.2) fl MCH (25.7-32.2) pg MCHC (32.2-35.5) g/dl RDW Std Deviation (35.1-43.9) fL Plt Count (163-337) K/mm3 MPV (9.4-12.3) fl Neutrophils % (Manual) (40-60) % Band Neutrophils % (0-10) % Lymphocytes % (Manual) (20-40) % Atypical Lymphs % % Monocytes % (Manual) (2-10) % Eosinophils % (Manual) (0.8-7.0) % Basophils % (Manual) (0.2-1.2) Platelet Estimate RBC Morph Comment Sodium 138 (136-145) mEq/L Potassium 3.2 L (3.5-5.1) mEq/L Chloride 100 (98-107) mEq/L Carbon Dioxide 26 (21-32) mEq/L Anion Gap 15.2 H (5-15) BUN 11 (7-18) mg/dL Creatinine 1.1 (0.7-1.3) mg/dL Est Cr Clr Drug Dosing 93.17 mL/min Estimated GFR (MDRD) > 60 (>60) mL/min BUN/Creatinine Ratio 10.0 L (14-18) Glucose 343 H (74-106) mg/dL POC Glucose (70-105) mg/dL Hemoglobin A1c 9.80 H (4.50-6.20) % Serum Osmolality 296 (280-300) mosm/kg Lactic Acid (0.4-2.0) mmol/L Calcium 8.7 (8.5-10.1) mg/dL Magnesium 1.6 L (1.8-2.4) mg/dl Iron 46 L (65-175) ug/dL TIBC 301 (100-400) ug/dL % Saturation 15 L (20-55) % Transferrin 241 (202-364) mg/dL Total Bilirubin 0.8 (0.2-1.0) mg/dL AST 26 (15-37) U/L ALT 39 (16-63) U/L Alkaline Phosphatase 82 (46-116) U/L Troponin I < 0.017 (0.00-0.056) ng/mL C-Reactive Protein 1.0 (<1.0) mg/dL Total Protein 6.8 (6.4-8.2) g/dl Albumin 3.8 (3.4-5.0) g/dl Globulin 3.0 gm/dL Albumin/Globulin Ratio 1.3 (1-2) Vitamin D 25-Hydroxy (30.0-100.0) ng/ml Free T4 (0.76-1.46) ng/dL TSH 3rd Generation (0.358-3.74) uIU/mL Ketones (0.0-0.3) mM 08/23/18 08/23/18 08/23/18 Range/Units 14:20 14:20 14:20 WBC 5.75 (4.23-9.07) K/mm3 RBC 5.72 (4.63-6.08) M/mm3 Hgb 16.1 (13.7-17.5) gm/L Hct 44.8 (40.1-51.0) % MCV 78.3 L (79.0-92.2) fl MCH 28.1 (25.7-32.2) pg MCHC 35.9 H (32.2-35.5) g/dl RDW Std Deviation 37.1 (35.1-43.9) fL Plt Count 200 (163-337) K/mm3 MPV 9.4 (9.4-12.3) fl Neutrophils % (Manual) 52 (40-60) % Band Neutrophils % 0 (0-10) % Lymphocytes % (Manual) 43 H (20-40) % Atypical Lymphs % 0 % Monocytes % (Manual) 5 (2-10) % Eosinophils % (Manual) 0 L (0.8-7.0) % Basophils % (Manual) 0 L (0.2-1.2) Platelet Estimate Adequate RBC Morph Comment Normal Sodium (136-145) mEq/L Potassium (3.5-5.1) mEq/L Chloride (98-107) mEq/L Carbon Dioxide (21-32) mEq/L Anion Gap (5-15) BUN (7-18) mg/dL Creatinine (0.7-1.3) mg/dL Est Cr Clr Drug Dosing mL/min Estimated GFR (MDRD) (>60) mL/min BUN/Creatinine Ratio (14-18) Glucose (74-106) mg/dL POC Glucose (70-105) mg/dL Hemoglobin A1c (4.50-6.20) % Serum Osmolality (280-300) mosm/kg Lactic Acid 1.7 (0.4-2.0) mmol/L Calcium (8.5-10.1) mg/dL Magnesium (1.8-2.4) mg/dl Iron (65-175) ug/dL TIBC (100-400) ug/dL % Saturation (20-55) % Transferrin (202-364) mg/dL Total Bilirubin (0.2-1.0) mg/dL AST (15-37) U/L ALT (16-63) U/L Alkaline Phosphatase (46-116) U/L Troponin I (0.00-0.056) ng/mL C-Reactive Protein (<1.0) mg/dL Total Protein (6.4-8.2) g/dl Albumin (3.4-5.0) g/dl Globulin gm/dL Albumin/Globulin Ratio (1-2) Vitamin D 25-Hydroxy (30.0-100.0) ng/ml Free T4 (0.76-1.46) ng/dL TSH 3rd Generation (0.358-3.74) uIU/mL Ketones 0.17 (0.0-0.3) mM 08/23/18 08/23/18 08/23/18 Range/Units 14:29 16:15 16:33 WBC (4.23-9.07) K/mm3 RBC (4.63-6.08) M/mm3 Hgb (13.7-17.5) gm/L Hct (40.1-51.0) % MCV (79.0-92.2) fl MCH (25.7-32.2) pg MCHC (32.2-35.5) g/dl RDW Std Deviation (35.1-43.9) fL Plt Count (163-337) K/mm3 MPV (9.4-12.3) fl Neutrophils % (Manual) (40-60) % Band Neutrophils % (0-10) % Lymphocytes % (Manual) (20-40) % Atypical Lymphs % % Monocytes % (Manual) (2-10) % Eosinophils % (Manual) (0.8-7.0) % Basophils % (Manual) (0.2-1.2) Platelet Estimate RBC Morph Comment Sodium (136-145) mEq/L Potassium (3.5-5.1) mEq/L Chloride (98-107) mEq/L Carbon Dioxide (21-32) mEq/L Anion Gap (5-15) BUN (7-18) mg/dL Creatinine (0.7-1.3) mg/dL Est Cr Clr Drug Dosing mL/min Estimated GFR (MDRD) (>60) mL/min BUN/Creatinine Ratio (14-18) Glucose 270 H (74-106) mg/dL POC Glucose 360 H 304 H (70-105) mg/dL Hemoglobin A1c (4.50-6.20) % Serum Osmolality (280-300) mosm/kg Lactic Acid (0.4-2.0) mmol/L Calcium (8.5-10.1) mg/dL Magnesium (1.8-2.4) mg/dl Iron (65-175) ug/dL TIBC (100-400) ug/dL % Saturation (20-55) % Transferrin (202-364) mg/dL Total Bilirubin (0.2-1.0) mg/dL AST (15-37) U/L ALT (16-63) U/L Alkaline Phosphatase (46-116) U/L Troponin I (0.00-0.056) ng/mL C-Reactive Protein (<1.0) mg/dL Total Protein (6.4-8.2) g/dl Albumin (3.4-5.0) g/dl Globulin gm/dL Albumin/Globulin Ratio (1-2) Vitamin D 25-Hydroxy (30.0-100.0) ng/ml Free T4 (0.76-1.46) ng/dL TSH 3rd Generation (0.358-3.74) uIU/mL Ketones (0.0-0.3) mM 08/23/18 Range/Units 16:33 WBC (4.23-9.07) K/mm3 RBC (4.63-6.08) M/mm3 Hgb (13.7-17.5) gm/L Hct (40.1-51.0) % MCV (79.0-92.2) fl MCH (25.7-32.2) pg MCHC (32.2-35.5) g/dl RDW Std Deviation (35.1-43.9) fL Plt Count (163-337) K/mm3 MPV (9.4-12.3) fl Neutrophils % (Manual) (40-60) % Band Neutrophils % (0-10) % Lymphocytes % (Manual) (20-40) % Atypical Lymphs % % Monocytes % (Manual) (2-10) % Eosinophils % (Manual) (0.8-7.0) % Basophils % (Manual) (0.2-1.2) Platelet Estimate RBC Morph Comment Sodium (136-145) mEq/L Potassium (3.5-5.1) mEq/L Chloride (98-107) mEq/L Carbon Dioxide (21-32) mEq/L Anion Gap (5-15) BUN (7-18) mg/dL Creatinine (0.7-1.3) mg/dL Est Cr Clr Drug Dosing mL/min Estimated GFR (MDRD) (>60) mL/min BUN/Creatinine Ratio (14-18) Glucose (74-106) mg/dL POC Glucose (70-105) mg/dL Hemoglobin A1c (4.50-6.20) % Serum Osmolality (280-300) mosm/kg Lactic Acid (0.4-2.0) mmol/L Calcium (8.5-10.1) mg/dL Magnesium (1.8-2.4) mg/dl Iron (65-175) ug/dL TIBC (100-400) ug/dL % Saturation (20-55) % Transferrin (202-364) mg/dL Total Bilirubin (0.2-1.0) mg/dL AST (15-37) U/L ALT (16-63) U/L Alkaline Phosphatase (46-116) U/L Troponin I (0.00-0.056) ng/mL C-Reactive Protein (<1.0) mg/dL Total Protein (6.4-8.2) g/dl Albumin (3.4-5.0) g/dl Globulin gm/dL Albumin/Globulin Ratio (1-2) Vitamin D 25-Hydroxy 13.4 L (30.0-100.0) ng/ml Free T4 1.07 (0.76-1.46) ng/dL TSH 3rd Generation 0.726 (0.358-3.74) uIU/mL Ketones (0.0-0.3) mM Result Diagrams: 08/24/18 05:46 08/24/18 05:46 Problem List Initiated/Reviewed/Updated: Yes Orders Last 24hrs: Active Orders 24 hr Category Date Time Status Admission Status [Patient Status] [ADT] Routine ADT 08/23/18 17:30 Active Accu Check [Blood Glucose Check, Bedside] [RC] Care 08/23/18 18:30 Active QIDACANDBED Ambulate [RC] ASDIRECTED Care 08/23/18 18:25 Active Antiembolic Devices [RC] QSHIFT Care 08/23/18 18:26 Active Height and Weight [RC] 04 Care 08/23/18 18:25 Active Intake and Output [RC] 04,16 Care 08/23/18 18:25 Active Oxygen Therapy [RC] PRN Care 08/23/18 18:25 Active RT Aerosol Therapy [RC] ASDIRECTED Care 08/23/18 18:27 Active VTE/DVT Education [RC] PER UNIT ROUTINE Care 08/23/18 18:25 Active Vital Signs [RC] Q4HR Care 08/23/18 18:25 Active Consult to Case Management/Wire Mesh Gate Assembler [CONS] Cons 08/23/18 18:25 Active Routine Consult to Diabetic Nurse Specialist [CONS] Routine Cons 08/23/18 18:25 Active Consult to Licensed Occupational Therapy Assistant [CONS] Routine Cons 08/23/18 18:25 Active Consistent Carbohydrate Diet [DIET] Diet 08/23/18 Dinner Active Heart Healthy Diet [DIET] Diet 08/23/18 Breakfast Active BASIC METABOLIC PANEL,BMP [CHEM] AM Lab 08/24/18 05:11 Ordered BASIC METABOLIC PANEL,BMP [CHEM] AM Lab 08/25/18 05:11 Ordered BASIC METABOLIC PANEL,BMP [CHEM] AM Lab 08/26/18 05:11 Ordered CBC WITH AUTO DIFF [HEME] AM Lab 08/24/18 05:11 Ordered CBC WITH AUTO DIFF [HEME] AM Lab 08/25/18 05:11 Ordered CBC WITH AUTO DIFF [HEME] AM Lab 08/26/18 05:11 Ordered LIPID PANEL [CHEM] AM Lab 08/24/18 05:11 Ordered MAGNESIUM [CHEM] AM Lab 08/24/18 05:11 Ordered MAGNESIUM [CHEM] AM Lab 08/25/18 05:11 Ordered MAGNESIUM [CHEM] AM Lab 08/26/18 05:11 Ordered MICROALBUMIN/CREAT RATIO,URINE [URCHEM] Routine Lab 08/23/18 16:33 Received TESTOSTERONE,FREE AND TOTAL [REF] Routine Lab 08/23/18 19:48 Ordered Acetaminophen [Tylenol] Med 08/23/18 18:25 Active 650 mg PO Q4H PRN Acetaminophen/HYDROcodone [Goldvein 325-5 MG] Med 08/23/18 18:25 Active 1 tab PO Q4H PRN Albuterol/Ipratropium [DuoNeb 3.0-0.5 MG/3 ML] Med 08/23/18 18:25 Active 3 ml NEB Q4H PRN Benzonatate [Tessalon Perles] Med 08/23/18 21:00 Active 200 mg PO BID Bisacodyl [Dulcolax] Med 08/23/18 18:25 Active 5 mg PO DAILY PRN Dextromethorphan/guaiFENesin [Robitussin DM] Med 08/23/18 19:04 Active 10 ml PO Q4H PRN Docusate Sodium [Colace] Med 08/23/18 18:25 Active 100 mg PO BID PRN Docusate Sodium/Sennosides [Senna Plus] Med 08/23/18 18:25 Active 1 tab PO BID PRN HYDROmorphone [Dilaudid] Med 08/23/18 18:25 Active 0.25 mg IVPUSH Q2H PRN Insulin Lispro [HumaLOG] Med 08/23/18 22:00 Active See Protocol SUBCUT QIDACANDBED LORazepam [Ativan] Med 08/23/18 18:25 Active 0.5 mg IV Q6H PRN LORazepam [Ativan] Med 08/23/18 18:24 Active 2 mg IVPUSH Q4H PRN Lactated Ringers [Ringers, Lactated] 1,000 ml Med 08/23/18 14:00 Active IV ASDIRECTED Losartan [Cozaar] Med 08/24/18 09:00 Active 25 mg PO DAILY Metoprolol Tartrate [Lopressor] Med 08/23/18 18:24 Active 5 mg IVPUSH Q4H PRN Ondansetron [Zofran] Med 08/23/18 18:25 Active 4 mg IV Q6H PRN Oxymetazoline [Nasal Decongestant Maupin] Med 08/23/18 19:52 Active 0 ml JOSE ANGEL Q12HR PRN Pharmacy to Dose - Magnesium R [Pharmacy to Dose - Med 08/23/18 18:30 Pending Magnesium Replacement] 1 dose .XX ASDIRECTED Pharmacy to Dose - Potassium R [Pharmacy to Dose - Med 08/23/18 18:30 Pending Potassium Replacement] 1 dose .XX ASDIRECTED Polyethylene Glycol 3350 [MiraLAX] Med 08/23/18 18:25 Active 17 gm PO DAILY PRN Potassium Chloride [Klor-Con M20] Med 08/23/18 19:00 Active 40 meq PO Q4H Promethazine [Phenergan] 6.25 mg Med 08/23/18 18:25 Active Sodium Chloride 0.9% [Normal Saline] 50 ml IV Q6H Remove Patch Med 08/30/18 20:00 Once 1 ea TRDERM ONETIME ONE Simvastatin [Zocor] Med 08/23/18 21:00 Active 20 mg PO BEDTIME Sodium Chloride 0.9% with KCl [Normal Saline with 40 Med 08/23/18 16:30 Active mEq KCl] 1,000 ml IV ASDIRECTED Temazepam [Restoril] Med 08/23/18 18:25 Active 7.5 mg PO BEDTIME PRN amLODIPine [Norvasc] Med 08/24/18 21:00 Active 10 mg PO BEDTIME hydrALAZINE [Apresoline] Med 08/23/18 18:24 Active 20 mg IVPUSH Q4H PRN hydroCHLOROthiazide Med 08/24/18 06:00 Active 12.5 mg PO BIDDIURETIC metFORMIN [Glucophage] Med 08/24/18 07:00 Active 500 mg PO BIDMEALS Sequential Compression Device [OM.PC] Per Unit Routine Oth 08/23/18 18:26 Ordered Resuscitation Status Routine Resus Stat 08/23/18 18:25 Ordered Medication Orders Acetaminophen (Tylenol) 650 mg PO Q4H PRN PRN Reason: Pain (Mild 1-3)/fever Hydrocodone Bitart/Acetaminophen (Goldvein 325-5 Mg) 1 tab PO Q4H PRN PRN Reason: Pain (moderate 4-6) Albuterol/Ipratropium (Duoneb 3.0-0.5 Mg/3 Ml) 3 ml NEB Q4H PRN PRN Reason: Shortness Of Breath/wheezing Amlodipine Besylate (Norvasc) 10 mg PO BEDTIME [facility]IMI Benzonatate (Tessalon Perles) 200 mg PO BID MIMI Bisacodyl (Dulcolax) 5 mg PO DAILY PRN PRN Reason: Constipation Docusate Sodium (Colace) 100 mg PO BID PRN PRN Reason: Constipation Guaifenesin/Phenylephrine HCl (Robitussin Dm) 10 ml PO Q4H PRN PRN Reason: Cough Hydralazine HCl (Apresoline) 20 mg IVPUSH Q4H PRN PRN Reason: Hypertension Hydrochlorothiazide (Hydrochlorothiazide) 12.5 mg PO BIDDIURETIC [facility] Hydromorphone HCl (Dilaudid) 0.25 mg IVPUSH Q2H PRN PRN Reason: Pain (severe 7-10) Lactated Ringer's (Ringers, Lactated) 1,000 mls @ 999 mls/hr IV ASDIRECTED [facility] Last Admin: 08/23/18 14:31 Dose: 999 mls/hr Potassium Chloride/Sodium Chloride (Normal Saline With 40 Meq Kcl) 1,000 mls @ 100 mls/hr IV ASDIRECTED [facility] Last Admin: 08/23/18 16:34 Dose: 100 mls/hr Promethazine HCl 6.25 mg/ (Sodium Chloride) 50.25 mls @ 100 mls/hr IV Q6H PRN PRN Reason: Nausea/Vomiting Insulin Human Lispro (Humalog) 0 unit SUBCUT QIDACANDBED [facility]; Protocol Lorazepam (Ativan) 2 mg IVPUSH Q4H PRN PRN Reason: Seizures Lorazepam (Ativan) 0.5 mg IV Q6H PRN PRN Reason: Anxiety Losartan Potassium (Cozaar) 25 mg PO DAILY [facility] Magnesium Sulfate (Pharmacy To Dose - Magnesium Replacement) 1 dose .XX ASDIRECTED [facility] Metformin HCl (Glucophage) 500 mg PO BIDMEALS [facility] Metoprolol Tartrate (Lopressor) 5 mg IVPUSH Q4H PRN PRN Reason: Tachycardia Miscellaneous Information (Remove Patch) 1 ea TRDERM ONETIME ONE Stop: 08/30/18 20:01 Ondansetron HCl (Zofran) 4 mg IV Q6H PRN PRN Reason: Nausea/Vomiting Oxymetazoline HCl (Nasal Decongestant Maupin) 0 ml JOSE ANGEL Q12HR PRN PRN Reason: Congestion Polyethylene Glycol (Miralax) 17 gm PO DAILY PRN PRN Reason: Constipation Potassium Chloride (Pharmacy To Dose - Potassium Replacement) 1 dose .XX ASDIRECTED [facility] Potassium Chloride (Klor-Con M20) 40 meq PO Q4H MIMI Stop: 08/24/18 03:01 Last Admin: 08/23/18 20:07 Dose: 40 meq Senna/Docusate Sodium (Senna Plus) 1 tab PO BID PRN PRN Reason: Constipation Simvastatin (Zocor) 20 mg PO BEDTIME MIMI Temazepam (Restoril) 7.5 mg PO BEDTIME PRN PRN Reason: Sleep Assessment/Plan Comment:: Assessment/Plan: Acute: Influenza A Infection - Overcoming symptoms for 5 days now - No need for antiviral agent as he is now outside the window - Continue supportive care Malignant HTN - Documented BPS in ED in the triple digits diastolic and SBP as high as 180s - Received initial treatment in ED but w/o much improvement - Hold ACEI due to dry cough - Start Norvasc 5 mg po QHS, HCTZ 12.5 mg po BID, Clonidine 02. mg po x1 now and Clonidine 0.3 patch x1 and PRN IVP Hydralazine 20 mg for BP > than 150/90 Hyperglycemia with DM2 - BS in the 300s; not well controlled - A1C is 9.80; Ketones level is 0.17 - He is only on Metformin 500 mg po BID; will resume it - Received 10 units of regular insulin in ED x1 - Accu-check A/C with Medium dose ISS - Thyroid Panel, Vit D Level and Microalbumin - Dietary and Embossograph Operator - Offered Class II Obese - BMI of 35.6 - Counseled on LSM - Dietary consult for weight management Erectile Dysfunction - Likely secondary to underlying diabetes - Unable to achieve and maintain an erection - He is not on narcotics - Ordered testosterone level - Advised LSM and defer PDE-5 Inhibitor Hypomagnesemia/Hypokalemia - Mg is 1.6; K of 3.2 - 2/2 poor oral intake - Replete and monitor Chronic: 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 With his permission, we went over his test results , treatment plan and offered newer diabetic agents. Provided them reading materials and discussed potential risks and benefits using SGLT2 and GLP1 Inhibitors after discharge.
[2018-08-23] MEDS ORDERED: Simvastatin 20 MG Tab PO SCH (21:00)
[2018-08-23] MEDS: Benzonatate 100 MG Cap PO SCH (21:20)
[2018-08-23] MEDS: Insulin Lispro 100 Units/ML 3 ML Vial SUBCUT SCH (22:45)
[2018-08-24] MEDS: Sodium Chloride 0.9% with KCl 1,000 ML IV SCH (02:52)
[2018-08-24] MEDS: Potassium Chloride 20 MEQ Tab.ER PO SCH (02:52)
[2018-08-24] MEDS: metFORMIN 500 MG Tab PO SCH ×2 (06:12→17:29)
[2018-08-24] MEDS: Hydrochlorothiazide 12.5 MG Cap PO SCH ×2 (06:13→14:37)
[2018-08-24] MEDS ORDERED: metFORMIN 500 MG Tab PO SCH (07:00)
[2018-08-24] MEDS: Losartan 25 MG Tab PO SCH (08:20)
[2018-08-24] MEDS: Benzonatate 100 MG Cap PO SCH ×2 (08:20→20:36)
[2018-08-24] MEDS: Insulin Lispro 100 Units/ML 3 ML Vial SUBCUT SCH ×4 (08:20→21:44)
--- NOTE | 2018-08-24 08:35 | PCM.PN ---
- General Info Date of Service: 08/24/18 Admission Dx/Problem (Free Text): Admission Diagnosis/Problem Admission Diagnosis/Problem Influenza due to influenza A subtype H1N1 virus Subjective Update: Follow Up Functional Status: Reports: Pain Controlled, Tolerating Diet, Ambulating, Urinating. Denies: New Symptoms - Review of Systems General: Denies: Fever, Chills HEENT: Reports: No Symptoms Pulmonary: Reports: Cough, Sputum. Denies: Shortness of Breath, Wheezing Cardiovascular: Denies: Chest Pain, Dyspnea on Exertion, Edema, Lightheadedness Gastrointestinal: Denies: Abdominal Pain, Decreased Appetite, Diarrhea, Nausea, Vomiting Genitourinary: Denies: Frequency, Burning, Urgency Musculoskeletal: Reports: No Symptoms Skin: Denies: Cyanosis, Mottled, Pallor, Diaphoresis, Bruising, Rash Neurological: Denies: Confusion, Difficulty Walking, Weakness, Gait Disturbance Psychiatric: Denies: Depression, Anxiety, Agitation, Hallucinations Systems Review Comment:: No significant overnight or acute issues. He rested good but had to get up a few times during the night for bathroom breaks. He otherwise feels better than yesterday. He is now coughing up less. He has no complaints this AM. - Patient Data Vitals - Most Recent: Last Vital Signs Temp 36.4 C 08/24/18 08:17 Pulse 73 08/24/18 08:17 Resp 20 08/24/18 08:17 BP 156/99 H 08/24/18 08:20 Pulse Ox 93 L 08/24/18 08:17 Orthostatic Blood Pressure [ 152/88 Standing] Orthostatic Blood Pressure [ 159/104 Sitting] Orthostatic Blood Pressure [ 151/93 Supine] Weight - Most Recent: 115.757 kg I&O - Last 24 Hours: Intake & Output 08/23/18 08/24/18 08/24/18 22:59 06:59 14:59 Intake Total 2320 Output Total 580 600 Balance -580 1720 Lab Results Last 24 Hours: Laboratory Results - last 24 hr 08/23/18 08/23/18 08/23/18 Range/Units 14:20 14:20 14:20 WBC (4.23-9.07) K/mm3 RBC (4.63-6.08) M/mm3 Hgb (13.7-17.5) gm/L Hct (40.1-51.0) % MCV (79.0-92.2) fl MCH (25.7-32.2) pg MCHC (32.2-35.5) g/dl RDW Std Deviation (35.1-43.9) fL Plt Count (163-337) K/mm3 MPV (9.4-12.3) fl Neut % (Auto) (34.0-67.9) % Lymph % (Auto) (21.8-53.1) % [place] % (Auto) (5.3-12.2) % Eos % (Auto) (0.8-7.0) Baso % (Auto) (0.1-1.2) % Neut # (Auto) (1.78-5.38) K/mm3 Lymph # (Auto) (1.32-3.57) K/mm3 [place] # (Auto) (0.30-0.82) K/mm3 Eos # (Auto) (0.04-0.54) K/mm3 Baso # (Auto) (0.01-0.08) K/mm3 Neutrophils % (Manual) (40-60) % Band Neutrophils % (0-10) % Lymphocytes % (Manual) (20-40) % Atypical Lymphs % % Monocytes % (Manual) (2-10) % Eosinophils % (Manual) (0.8-7.0) % Basophils % (Manual) (0.2-1.2) Platelet Estimate RBC Morph Comment Sodium 138 (136-145) mEq/L Potassium 3.2 L (3.5-5.1) mEq/L Chloride 100 (98-107) mEq/L Carbon Dioxide 26 (21-32) mEq/L Anion Gap 15.2 H (5-15) BUN 11 (7-18) mg/dL Creatinine 1.1 (0.7-1.3) mg/dL Est Cr Clr Drug Dosing 93.17 mL/min Estimated GFR (MDRD) > 60 (>60) mL/min BUN/Creatinine Ratio 10.0 L (14-18) Glucose 343 H (74-106) mg/dL POC Glucose (70-105) mg/dL Hemoglobin A1c 9.80 H (4.50-6.20) % Serum Osmolality 296 (280-300) mosm/kg Lactic Acid (0.4-2.0) mmol/L Calcium 8.7 (8.5-10.1) mg/dL Magnesium 1.6 L (1.8-2.4) mg/dl Iron 46 L (65-175) ug/dL TIBC 301 (100-400) ug/dL % Saturation 15 L (20-55) % Transferrin 241 (202-364) mg/dL Total Bilirubin 0.8 (0.2-1.0) mg/dL AST 26 (15-37) U/L ALT 39 (16-63) U/L Alkaline Phosphatase 82 (46-116) U/L Troponin I < 0.017 (0.00-0.056) ng/mL C-Reactive Protein 1.0 (<1.0) mg/dL Total Protein 6.8 (6.4-8.2) g/dl Albumin 3.8 (3.4-5.0) g/dl Globulin 3.0 gm/dL Albumin/Globulin Ratio 1.3 (1-2) Triglycerides (<150) mg/dL Cholesterol (<200) mg/dL LDL Cholesterol Direct (<100) mg/dL HDL Cholesterol (40-59) mg/dL Vitamin D 25-Hydroxy (30.0-100.0) ng/ml Free T4 (0.76-1.46) ng/dL TSH 3rd Generation (0.358-3.74) uIU/mL Ketones (0.0-0.3) mM 08/23/18 08/23/18 08/23/18 Range/Units 14:20 14:20 14:20 WBC 5.75 (4.23-9.07) K/mm3 RBC 5.72 (4.63-6.08) M/mm3 Hgb 16.1 (13.7-17.5) gm/L Hct 44.8 (40.1-51.0) % MCV 78.3 L (79.0-92.2) fl MCH 28.1 (25.7-32.2) pg MCHC 35.9 H (32.2-35.5) g/dl RDW Std Deviation 37.1 (35.1-43.9) fL Plt Count 200 (163-337) K/mm3 MPV 9.4 (9.4-12.3) fl Neut % (Auto) (34.0-67.9) % Lymph % (Auto) (21.8-53.1) % [place] % (Auto) (5.3-12.2) % Eos % (Auto) (0.8-7.0) Baso % (Auto) (0.1-1.2) % Neut # (Auto) (1.78-5.38) K/mm3 Lymph # (Auto) (1.32-3.57) K/mm3 [place] # (Auto) (0.30-0.82) K/mm3 Eos # (Auto) (0.04-0.54) K/mm3 Baso # (Auto) (0.01-0.08) K/mm3 Neutrophils % (Manual) 52 (40-60) % Band Neutrophils % 0 (0-10) % Lymphocytes % (Manual) 43 H (20-40) % Atypical Lymphs % 0 % Monocytes % (Manual) 5 (2-10) % Eosinophils % (Manual) 0 L (0.8-7.0) % Basophils % (Manual) 0 L (0.2-1.2) Platelet Estimate Adequate RBC Morph Comment Normal Sodium (136-145) mEq/L Potassium (3.5-5.1) mEq/L Chloride (98-107) mEq/L Carbon Dioxide (21-32) mEq/L Anion Gap (5-15) BUN (7-18) mg/dL Creatinine (0.7-1.3) mg/dL Est Cr Clr Drug Dosing mL/min Estimated GFR (MDRD) (>60) mL/min BUN/Creatinine Ratio (14-18) Glucose (74-106) mg/dL POC Glucose (70-105) mg/dL Hemoglobin A1c (4.50-6.20) % Serum Osmolality (280-300) mosm/kg Lactic Acid 1.7 (0.4-2.0) mmol/L Calcium (8.5-10.1) mg/dL Magnesium (1.8-2.4) mg/dl Iron (65-175) ug/dL TIBC (100-400) ug/dL % Saturation (20-55) % Transferrin (202-364) mg/dL Total Bilirubin (0.2-1.0) mg/dL AST (15-37) U/L ALT (16-63) U/L Alkaline Phosphatase (46-116) U/L Troponin I (0.00-0.056) ng/mL C-Reactive Protein (<1.0) mg/dL Total Protein (6.4-8.2) g/dl Albumin (3.4-5.0) g/dl Globulin gm/dL Albumin/Globulin Ratio (1-2) Triglycerides (<150) mg/dL Cholesterol (<200) mg/dL LDL Cholesterol Direct (<100) mg/dL HDL Cholesterol (40-59) mg/dL Vitamin D 25-Hydroxy (30.0-100.0) ng/ml Free T4 (0.76-1.46) ng/dL TSH 3rd Generation (0.358-3.74) uIU/mL Ketones 0.17 (0.0-0.3) mM 08/23/18 08/23/18 08/23/18 Range/Units 14:29 16:15 16:33 WBC (4.23-9.07) K/mm3 RBC (4.63-6.08) M/mm3 Hgb (13.7-17.5) gm/L Hct (40.1-51.0) % MCV (79.0-92.2) fl MCH (25.7-32.2) pg MCHC (32.2-35.5) g/dl RDW Std Deviation (35.1-43.9) fL Plt Count (163-337) K/mm3 MPV (9.4-12.3) fl Neut % (Auto) (34.0-67.9) % Lymph % (Auto) (21.8-53.1) % [place] % (Auto) (5.3-12.2) % Eos % (Auto) (0.8-7.0) Baso % (Auto) (0.1-1.2) % Neut # (Auto) (1.78-5.38) K/mm3 Lymph # (Auto) (1.32-3.57) K/mm3 [place] # (Auto) (0.30-0.82) K/mm3 Eos # (Auto) (0.04-0.54) K/mm3 Baso # (Auto) (0.01-0.08) K/mm3 Neutrophils % (Manual) (40-60) % Band Neutrophils % (0-10) % Lymphocytes % (Manual) (20-40) % Atypical Lymphs % % Monocytes % (Manual) (2-10) % Eosinophils % (Manual) (0.8-7.0) % Basophils % (Manual) (0.2-1.2) Platelet Estimate RBC Morph Comment Sodium (136-145) mEq/L Potassium (3.5-5.1) mEq/L Chloride (98-107) mEq/L Carbon Dioxide (21-32) mEq/L Anion Gap (5-15) BUN (7-18) mg/dL Creatinine (0.7-1.3) mg/dL Est Cr Clr Drug Dosing mL/min Estimated GFR (MDRD) (>60) mL/min BUN/Creatinine Ratio (14-18) Glucose 270 H (74-106) mg/dL POC Glucose 360 H 304 H (70-105) mg/dL Hemoglobin A1c (4.50-6.20) % Serum Osmolality (280-300) mosm/kg Lactic Acid (0.4-2.0) mmol/L Calcium (8.5-10.1) mg/dL Magnesium (1.8-2.4) mg/dl Iron (65-175) ug/dL TIBC (100-400) ug/dL % Saturation (20-55) % Transferrin (202-364) mg/dL Total Bilirubin (0.2-1.0) mg/dL AST (15-37) U/L ALT (16-63) U/L Alkaline Phosphatase (46-116) U/L Troponin I (0.00-0.056) ng/mL C-Reactive Protein (<1.0) mg/dL Total Protein (6.4-8.2) g/dl Albumin (3.4-5.0) g/dl Globulin gm/dL Albumin/Globulin Ratio (1-2) Triglycerides (<150) mg/dL Cholesterol (<200) mg/dL LDL Cholesterol Direct (<100) mg/dL HDL Cholesterol (40-59) mg/dL Vitamin D 25-Hydroxy (30.0-100.0) ng/ml Free T4 (0.76-1.46) ng/dL TSH 3rd Generation (0.358-3.74) uIU/mL Ketones (0.0-0.3) mM 08/23/18 08/23/1808/24/19 Range/Units 16:33 21:18 05:46 WBC 5.38 (4.23-9.07) K/mm3 RBC 5.39 (4.63-6.08) M/mm3 Hgb 14.9 (13.7-17.5) gm/L Hct 43.4 (40.1-51.0) % MCV 80.5 (79.0-92.2) fl MCH 27.6 (25.7-32.2) pg MCHC 34.3 (32.2-35.5) g/dl RDW Std Deviation 38.1 (35.1-43.9) fL Plt Count 189 (163-337) K/mm3 MPV 9.9 (9.4-12.3) fl Neut % (Auto) 46.2 (34.0-67.9) % Lymph % (Auto) 40.1 (21.8-53.1) % [place] % (Auto) 8.6 (5.3-12.2) % Eos % (Auto) 4.5 (0.8-7.0) Baso % (Auto) 0.4 (0.1-1.2) % Neut # (Auto) 2.49 (1.78-5.38) K/mm3 Lymph # (Auto) 2.16 (1.32-3.57) K/mm3 [place] # (Auto) 0.46 (0.30-0.82) K/mm3 Eos # (Auto) 0.24 (0.04-0.54) K/mm3 Baso # (Auto) 0.02 (0.01-0.08) K/mm3 Neutrophils % (Manual) (40-60) % Band Neutrophils % (0-10) % Lymphocytes % (Manual) (20-40) % Atypical Lymphs % % Monocytes % (Manual) (2-10) % Eosinophils % (Manual) (0.8-7.0) % Basophils % (Manual) (0.2-1.2) Platelet Estimate RBC Morph Comment Sodium (136-145) mEq/L Potassium (3.5-5.1) mEq/L Chloride (98-107) mEq/L Carbon Dioxide (21-32) mEq/L Anion Gap (5-15) BUN (7-18) mg/dL Creatinine (0.7-1.3) mg/dL Est Cr Clr Drug Dosing mL/min Estimated GFR (MDRD) (>60) mL/min BUN/Creatinine Ratio (14-18) Glucose (74-106) mg/dL POC Glucose 175 H (70-105) mg/dL Hemoglobin A1c (4.50-6.20) % Serum Osmolality (280-300) mosm/kg Lactic Acid (0.4-2.0) mmol/L Calcium (8.5-10.1) mg/dL Magnesium (1.8-2.4) mg/dl Iron (65-175) ug/dL TIBC (100-400) ug/dL % Saturation (20-55) % Transferrin (202-364) mg/dL Total Bilirubin (0.2-1.0) mg/dL AST (15-37) U/L ALT (16-63) U/L Alkaline Phosphatase (46-116) U/L Troponin I (0.00-0.056) ng/mL C-Reactive Protein (<1.0) mg/dL Total Protein (6.4-8.2) g/dl Albumin (3.4-5.0) g/dl Globulin gm/dL Albumin/Globulin Ratio (1-2) Triglycerides (<150) mg/dL Cholesterol (<200) mg/dL LDL Cholesterol Direct (<100) mg/dL HDL Cholesterol (40-59) mg/dL Vitamin D 25-Hydroxy 13.4 L (30.0-100.0) ng/ml Free T4 1.07 (0.76-1.46) ng/dL TSH 3rd Generation 0.726 (0.358-3.74) uIU/mL Ketones (0.0-0.3) mM 08/24/18 08/24/18 Range/Units 05:46 06:13 WBC (4.23-9.07) K/mm3 RBC (4.63-6.08) M/mm3 Hgb (13.7-17.5) gm/L Hct (40.1-51.0) % MCV (79.0-92.2) fl MCH (25.7-32.2) pg MCHC (32.2-35.5) g/dl RDW Std Deviation (35.1-43.9) fL Plt Count (163-337) K/mm3 MPV (9.4-12.3) fl Neut % (Auto) (34.0-67.9) % Lymph % (Auto) (21.8-53.1) % [place] % (Auto) (5.3-12.2) % Eos % (Auto) (0.8-7.0) Baso % (Auto) (0.1-1.2) % Neut # (Auto) (1.78-5.38) K/mm3 Lymph # (Auto) (1.32-3.57) K/mm3 [place] # (Auto) (0.30-0.82) K/mm3 Eos # (Auto) (0.04-0.54) K/mm3 Baso # (Auto) (0.01-0.08) K/mm3 Neutrophils % (Manual) (40-60) % Band Neutrophils % (0-10) % Lymphocytes % (Manual) (20-40) % Atypical Lymphs % % Monocytes % (Manual) (2-10) % Eosinophils % (Manual) (0.8-7.0) % Basophils % (Manual) (0.2-1.2) Platelet Estimate RBC Morph Comment Sodium 138 (136-145) mEq/L Potassium 3.8 (3.5-5.1) mEq/L Chloride 103 (98-107) mEq/L Carbon Dioxide 25 (21-32) mEq/L Anion Gap 13.8 (5-15) BUN 10 (7-18) mg/dL Creatinine 0.8 (0.7-1.3) mg/dL Est Cr Clr Drug Dosing 128.11 mL/min Estimated GFR (MDRD) > 60 (>60) mL/min BUN/Creatinine Ratio 12.5 L (14-18) Glucose 268 H (74-106) mg/dL POC Glucose 265 H (70-105) mg/dL Hemoglobin A1c (4.50-6.20) % Serum Osmolality (280-300) mosm/kg Lactic Acid (0.4-2.0) mmol/L Calcium 8.6 (8.5-10.1) mg/dL Magnesium 1.7 L (1.8-2.4) mg/dl Iron (65-175) ug/dL TIBC (100-400) ug/dL % Saturation (20-55) % Transferrin (202-364) mg/dL Total Bilirubin (0.2-1.0) mg/dL AST (15-37) U/L ALT (16-63) U/L Alkaline Phosphatase (46-116) U/L Troponin I (0.00-0.056) ng/mL C-Reactive Protein (<1.0) mg/dL Total Protein (6.4-8.2) g/dl Albumin (3.4-5.0) g/dl Globulin gm/dL Albumin/Globulin Ratio (1-2) Triglycerides 425 H (<150) mg/dL Cholesterol 139 (<200) mg/dL LDL Cholesterol Direct 68 (<100) mg/dL HDL Cholesterol 23.0 L (40-59) mg/dL Vitamin D 25-Hydroxy (30.0-100.0) ng/ml Free T4 (0.76-1.46) ng/dL TSH 3rd Generation (0.358-3.74) uIU/mL Ketones (0.0-0.3) mM Med Orders - Current: Current Medications Acetaminophen (Tylenol) 650 mg PO Q4H PRN PRN Reason: Pain (Mild 1-3)/fever Hydrocodone Bitart/Acetaminophen ([place] 325-5 Mg) 1 tab PO Q4H PRN PRN Reason: Pain (moderate 4-6) Albuterol/Ipratropium (Duoneb 3.0-0.5 Mg/3 Ml) 3 ml NEB Q4H PRN PRN Reason: Shortness Of Breath/wheezing Amlodipine Besylate (Norvasc) 10 mg PO BEDTIME MIMI Benzonatate (Tessalon Perles) 200 mg PO BID MIMI Last Admin: 08/24/18 08:20 Dose: 200 mg Bisacodyl (Dulcolax) 5 mg PO DAILY PRN PRN Reason: Constipation Docusate Sodium (Colace) 100 mg PO BID PRN PRN Reason: Constipation Guaifenesin/Phenylephrine HCl (Robitussin Dm) 10 ml PO Q4H PRN PRN Reason: Cough Hydralazine HCl (Apresoline) 20 mg IVPUSH Q4H PRN PRN Reason: Hypertension Hydrochlorothiazide (Hydrochlorothiazide) 12.5 mg PO BIDDIURETIC MIMI Last Admin: 08/24/18 06:13 Dose: 12.5 mg Hydromorphone HCl (Dilaudid) 0.25 mg IVPUSH Q2H PRN PRN Reason: Pain (severe 7-10) Potassium Chloride/Sodium Chloride (Normal Saline With 40 Meq Kcl) 1,000 mls @ 100 mls/hr IV ASDIRECTED [facility] Last Admin: 08/24/18 02:52 Dose: 100 mls/hr Promethazine HCl 6.25 mg/ (Sodium Chloride) 50.25 mls @ 100 mls/hr IV Q6H PRN PRN Reason: Nausea/Vomiting Insulin Human Lispro (Humalog) 0 unit SUBCUT QIDACANDBED [facility]; Protocol Last Admin: 08/24/18 08:20 Dose: 6 units Lorazepam (Ativan) 2 mg IVPUSH Q4H PRN PRN Reason: Seizures Lorazepam (Ativan) 0.5 mg IV Q6H PRN PRN Reason: Anxiety Losartan Potassium (Cozaar) 25 mg PO DAILY [facility] Last Admin: 08/24/18 08:20 Dose: 25 mg Magnesium Sulfate (Pharmacy To Dose - Magnesium Replacement) 1 dose .XX ASDIRECTED PRN PRN Reason: RX TO WATCH MG LEVELS Metformin HCl (Glucophage) 500 mg PO BIDTXALS [facility] Last Admin: 08/24/18 06:12 Dose: 500 mg Metoprolol Tartrate (Lopressor) 5 mg IVPUSH Q4H PRN PRN Reason: Tachycardia Miscellaneous Information (Remove Patch) 1 ea TRDERM ONETIME ONE Stop: 08/30/18 20:01 Ondansetron HCl (Zofran) 4 mg IV Q6H PRN PRN Reason: Nausea/Vomiting Oxymetazoline HCl (Nasal Decongestant Porter) 0 ml JOSE ANGEL Q12HR PRN PRN Reason: Congestion Polyethylene Glycol (Miralax) 17 gm PO DAILY PRN PRN Reason: Constipation Potassium Chloride (Pharmacy To Dose - Potassium Replacement) 1 dose .XX ASDIRECTED PRN PRN Reason: RX TO WATCH K+ LEVELS Senna/Docusate Sodium (Senna Plus) 1 tab PO BID PRN PRN Reason: Constipation Simvastatin (Zocor) 20 mg PO BEDTIME [facility] Last Admin: 08/23/18 21:20 Dose: 20 mg Temazepam (Restoril) 7.5 mg PO BEDTIME PRN PRN Reason: Sleep Last Admin: 08/23/18 22:45 Dose: 7.5 mg Discontinued Medications Amlodipine Besylate (Norvasc) 10 mg PO ONETIME ONE Stop: 08/23/18 16:29 Last Admin: 08/23/18 16:57 Dose: 10 mg Clonidine HCl (Catapres-Tts 3) 0.3 mg TRDERM ONETIME ONE Stop: 08/23/18 19:03 Last Admin: 08/23/18 20:08 Dose: 0.3 mg Clonidine HCl (Catapres) 0.2 mg PO ONETIME ONE Stop: 08/23/18 19:03 Last Admin: 08/23/18 20:09 Dose: 0.2 mg Enalaprilat (Vasotec Iv) 1.25 mg IVPUSH ONETIME ONE Stop: 08/23/18 17:34 Last Admin: 08/23/18 17:59 Dose: 1.25 mg Hydralazine HCl (Apresoline) 10 mg IVPUSH ONETIME ONE Stop: 08/23/18 16:19 Last Admin: 08/23/18 16:34 Dose: 10 mg Lactated Ringer's (Ringers, Lactated) 1,000 mls @ 999 mls/hr IV ASDIRECTED [facility] Last Admin: 08/23/18 14:31 Dose: 999 mls/hr Insulin Human Regular (Humulin R) 10 unit SUBCUT ONETIME ONE Stop: 08/23/18 14:00 Last Admin: 08/23/18 14:30 Dose: 10 units Lisinopril (Prinivil) 20 mg PO DAILY [facility] Magnesium Oxide (Magnesium Oxide) 400 mg PO ONETIME ONE Stop: 08/23/18 19:01 Last Admin: 08/23/18 20:10 Dose: 400 mg Metformin HCl (Glucophage) 1,000 mg PO BIDMEALS [facility] Potassium Chloride (Klor-Con M20) 40 meq PO Q4H [facility] Stop: 08/24/18 03:01 Last Admin: 08/24/18 02:52 Dose: 40 meq - Exam General: Alert, Oriented, Cooperative, No Acute Distress, Other (Obese) HEENT: Pupils Equal, Pupils Reactive, EOMI, Mucous Membr. Moist/[place] Neck: Supple, Trachea Midline, No JVD, No Thyromegaly Lungs: Clear to Auscultation, Normal Respiratory Effort, Decreased Breath Sounds Cardiovascular: Regular Rate, Regular Rhythm GI/Abdominal Exam: Normal Bowel Sounds, Soft, Non-Tender, No Organomegaly, No Distention, No Abnormal Bruit, No Mass, Pelvis Stable, Other (Obese) (Male) Exam: Deferred Back Exam: Normal Inspection, Decreased Range of Motion Extremities: Normal Inspection, Normal Range of Motion, Non-Tender, No Pedal Edema, Normal Capillary Refill Peripheral Pulses: 2+: Dorsalis Pedis (L), Dorsalis Pedis (R) Skin: Warm, Dry, Intact Neurological: No New Focal Deficit Psy/Mental Status: Alert, Normal Affect, Normal Mood - Problem List Review Problem List Initiated/Reviewed/Updated: Yes - My Orders Last 24 Hours: My Active Orders 08/23/18 16:33 MICROALBUMIN/CREAT RATIO,URINE [URCHEM] Routine 08/23/18 17:20 TESTOSTERONE,FREE AND TOTAL [REF] Routine 08/23/18 18:24 LORazepam [Ativan] 2 mg IVPUSH Q4H PRN Metoprolol Tartrate [Lopressor] 5 mg IVPUSH Q4H PRN hydrALAZINE [Apresoline] 20 mg IVPUSH Q4H PRN 08/23/18 18:25 Ambulate [RC] ASDIRECTED Height and Weight [RC] 04 Intake and Output [RC] 04,16 Oxygen Therapy [RC] PRN VTE/DVT Education [RC] DAILY Vital Signs [RC] Q4HR Consult to Case Management/Manager Inventory Management [CONS] Routine Consult to Diabetic Nurse Specialist [CONS] Routine Consult to Major Assembly Inspector [CONS] Routine Acetaminophen [Tylenol] 650 mg PO Q4H PRN Acetaminophen/HYDROcodone [[place] 325-5 MG] 1 tab PO Q4H PRN Albuterol/Ipratropium [DuoNeb 3.0-0.5 MG/3 ML] 3 ml NEB Q4H PRN Bisacodyl [Dulcolax] 5 mg PO DAILY PRN Docusate Sodium [Colace] 100 mg PO BID PRN Docusate Sodium/Sennosides [Senna Plus] 1 tab PO BID PRN HYDROmorphone [Dilaudid] 0.25 mg IVPUSH Q2H PRN LORazepam [Ativan] 0.5 mg IV Q6H PRN Ondansetron [Zofran] 4 mg IV Q6H PRN Polyethylene Glycol 3350 [MiraLAX] 17 gm PO DAILY PRN Promethazine [Phenergan] 6.25 mg Sodium Chloride 0.9% [Normal Saline] 50 ml IV Q6H Temazepam [Restoril] 7.5 mg PO BEDTIME PRN Resuscitation Status Routine 08/23/18 18:26 Antiembolic Devices [RC] QSHIFT Sequential Compression Device [OM.PC] Per Unit Routine 08/23/18 18:27 RT Aerosol Therapy [RC] ASDIRECTED 08/23/18 18:30 Accu Check [Blood Glucose Check, Bedside] [RC] QIDACANDBED Pharmacy to Dose - Magnesium R [Pharmacy to Dose - Magnesium Replacement] 1 dose .XX ASDIRECTED PRN Pharmacy to Dose - Potassium R [Pharmacy to Dose - Potassium Replacement] 1 dose .XX ASDIRECTED PRN 08/23/18 19:04 Dextromethorphan/guaiFENesin [Robitussin DM] 10 ml PO Q4H PRN 08/23/18 19:52 Oxymetazoline [Nasal Decongestant Porter] 0 ml JOSE ANGEL Q12HR PRN 08/23/18 21:00 Benzonatate [Tessalon Perles] 200 mg PO BID Simvastatin [Zocor] 20 mg PO BEDTIME 08/23/18 22:00 Insulin Lispro [HumaLOG] See Protocol SUBCUT QIDACANDBED 08/23/18 Dinner Consistent Carbohydrate Diet [DIET] 08/24/18 06:00 hydroCHLOROthiazide 12.5 mg PO BIDDIURETIC 08/24/18 07:00 metFORMIN [Glucophage] 500 mg PO BIDMEALS 08/24/18 09:00 Losartan [Cozaar] 25 mg PO DAILY 08/24/18 21:00 amLODIPine [Norvasc] 10 mg PO BEDTIME 08/25/18 05:11 BASIC METABOLIC PANEL,BMP [CHEM] AM CBC WITH AUTO DIFF [HEME] AM MAGNESIUM [CHEM] AM 08/26/18 05:11 BASIC METABOLIC PANEL,BMP [CHEM] AM CBC WITH AUTO DIFF [HEME] AM MAGNESIUM [CHEM] AM 08/30/18 20:00 Remove Patch 1 ea TRDERM ONETIME ONE - Plan Plan:: Assessment/Plan: Acute: Influenza A Infection - Overcoming symptoms for 5 days now - No need for antiviral agent as he is now outside the window - Symptoms improving - Continue supportive care Malignant HTN, Improved - Documented BPS in ED in the triple digits diastolic and SBP as high as 180s ; BPs: Mid 150s/upper 90s - Received initial treatment in ED but w/o much improvement - Hold ACEI due to dry cough - Changed Norvasc 5 mg po BID, Continue HCTZ 12.5 mg po BID, Clonidine 0.3 patch x1 and PRN IVP Hydralazine 20 mg for BP > than 150/90; Added Clonidine 0.1 mg po BID x 4 doses Hyperglycemia with DM2, Improved - BS in the 300s; now in the upper 200s - A1C is 9.80; Ketones level is 0.17 - He is only on Metformin 500 mg po BID; Changed to 1000 mg po BID - Received 10 units of regular insulin in ED x1 - Accu-check A/C with Medium dose ISS; Switched ISS to High dose - Thyroid Panel- normal - Microalbumin 43.8 (elevated); was on ACEI but held due to dry cough; now ARB for renal protection - Dietary and [employer] Imaging Class II Obese - BMI of 35.6 - Counseled on LSM - Dietary consult for weight management Erectile Dysfunction - Likely secondary to underlying diabetes - Unable to achieve and maintain an erection - He is not on narcotics - Ordered testosterone level; pending - Advised LSM and defer PDE-5 Inhibitor Hypomagnesemia - Mg is 1.6--> now 1.7 - 2/2 poor oral intake - Replete and monitor Resolved: S/p Hypokalemia - K of 3.2--> 3.8 - 2/2 poor oral intake - Replete and monitor Chronic: 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 Possible discharge in 1-2 days.
[2018-08-24] MEDS ORDERED: Magnesium Oxide 400 MG Tab PO ONE (09:00)
[2018-08-24] MEDS ORDERED: Lisinopril 20 MG Tab PO SCH (09:00)
[2018-08-24] MEDS ORDERED: Oxymetazoline 0.05% Nasal Spray 15 ML Bottle NAS PRN (09:00)
[2018-08-24] MEDS: cloNIDine 0.1 MG Tab PO SCH ×2 (09:06→20:38)
[2018-08-24] MEDS: hydrALAZINE 20 MG/ML SDV IVPUSH PRN ×2 (11:54→21:47)
[2018-08-24] MEDS: Cholecalciferol (Vitamin D3) 5,000 UNIT Tab PO SCH (20:37)
[2018-08-24] MEDS: amLODIPine 5 MG Tab PO SCH (20:37)
[2018-08-24] MEDS: Simvastatin 40 MG Tab PO SCH (20:38)
[2018-08-24] MEDS ORDERED: amLODIPine 10 MG Tab PO SCH (21:00)
[2018-08-24] MEDS ORDERED: amLODIPine 5 MG Tab PO SCH (21:00)
[2018-08-24] MEDS: Temazepam 15 MG Cap PO PRN (21:44)
[2018-08-25] MEDS: Hydrochlorothiazide 12.5 MG Cap PO SCH ×2 (06:20→14:24)
[2018-08-25] MEDS: metFORMIN 500 MG Tab PO SCH ×2 (06:21→17:14)
[2018-08-25] MEDS: cloNIDine 0.1 MG Tab PO SCH ×2 (08:32→20:51)
[2018-08-25] MEDS: Losartan 25 MG Tab PO SCH (08:32)
[2018-08-25] MEDS: Insulin Lispro 100 Units/ML 3 ML Vial SUBCUT SCH ×4 (08:32→21:04)
[2018-08-25] MEDS: Benzonatate 100 MG Cap PO SCH ×2 (08:32→20:50)
[2018-08-25] MEDS: amLODIPine 5 MG Tab PO SCH ×2 (08:32→20:51)
--- NOTE | 2018-08-25 09:28 | PCM.PN ---
- General Info Date of Service: 08/25/18 Admission Dx/Problem (Free Text): Admission Diagnosis/Problem Admission Diagnosis/Problem Influenza due to influenza A subtype H1N1 virus Subjective Update: Follow Up Functional Status: Reports: Pain Controlled, Tolerating Diet, Ambulating, Urinating, New Symptoms. Denies: Incentive Spirometry - Review of Systems General: Denies: Fever, Weakness, Fatigue, Malaise, Chills HEENT: Denies: Contact Lenses Pulmonary: Reports: Cough, Sputum. Denies: Shortness of Breath Cardiovascular: Denies: Chest Pain, Dyspnea on Exertion, Edema, Lightheadedness Gastrointestinal: Denies: Abdominal Pain, Nausea, Vomiting Genitourinary: Reports: No Symptoms Musculoskeletal: Reports: No Symptoms Skin: Denies: Cyanosis, Jaundice, Mottled, Pallor, Diaphoresis, Bruising, Pruritis Neurological: Denies: Confusion, Difficulty Walking, Weakness, Gait Disturbance Psychiatric: Denies: Depression, Anxiety, Agitation, Hallucinations Systems Review Comment:: No overnight issues. He definitely rested well last night. Still has mild cough. His BS is now down in the mid 200s. His pressures are stable. His Mg is slightly low at 1.6. He has no complaints this AM. - Patient Data Vitals - Most Recent: Last Vital Signs Temp 36.5 C 08/25/18 07:40 Pulse 79 08/25/18 07:40 Resp 18 08/25/18 07:40 BP 151/90 H 08/25/18 08:32 Pulse Ox 94 L 08/25/18 07:40 Orthostatic Blood Pressure [ 152/88 Standing] Orthostatic Blood Pressure [ 159/104 Sitting] Orthostatic Blood Pressure [ 151/93 Supine] Weight - Most Recent: 113.307 kg I&O - Last 24 Hours: Intake & Output 08/24/18 08/25/18 08/25/18 22:59 06:59 14:59 Intake Total 2069 400 Output Total 600 Balance 0 -200 Lab Results Last 24 Hours: Laboratory Results - last 24 hr 08/24/18 08/24/18 08/24/18 Range/Units 11:18 16:36 16:44 WBC (4.23-9.07) K/mm3 RBC (4.63-6.08) M/mm3 Hgb (13.7-17.5) gm/L Hct (40.1-51.0) % MCV (79.0-92.2) fl MCH (25.7-32.2) pg MCHC (32.2-35.5) g/dl RDW Std Deviation (35.1-43.9) fL Plt Count (163-337) K/mm3 MPV (9.4-12.3) fl Neut % (Auto) (34.0-67.9) % Lymph % (Auto) (21.8-53.1) % Pope % (Auto) (5.3-12.2) % Eos % (Auto) (0.8-7.0) Baso % (Auto) (0.1-1.2) % Neut # (Auto) (1.78-5.38) K/mm3 Lymph # (Auto) (1.32-3.57) K/mm3 Pope # (Auto) (0.30-0.82) K/mm3 Eos # (Auto) (0.04-0.54) K/mm3 Baso # (Auto) (0.01-0.08) K/mm3 Sodium (136-145) mEq/L Potassium (3.5-5.1) mEq/L Chloride (98-107) mEq/L Carbon Dioxide (21-32) mEq/L Anion Gap (5-15) BUN (7-18) mg/dL Creatinine (0.7-1.3) mg/dL Est Cr Clr Drug Dosing mL/min Estimated GFR (MDRD) (>60) mL/min BUN/Creatinine Ratio (14-18) Glucose (74-106) mg/dL POC Glucose 283 H 270 H (70-105) mg/dL Calcium (8.5-10.1) mg/dL Magnesium (1.8-2.4) mg/dl Ur Random Creatinine 58.6 (30.0-125.0) mg/dL Ur Random Microalbumin 43.8 H (1.3-20.0) mg/L Microalb/Creat Ratio 74.7 H (0-30) mg/g 08/24/18 08/25/18 08/25/18 Range/Units 20:40 06:02 06:02 WBC 8.75 (4.23-9.07) K/mm3 RBC 5.92 (4.63-6.08) M/mm3 Hgb 16.5 (13.7-17.5) gm/L Hct 46.6 (40.1-51.0) % MCV 78.7 L (79.0-92.2) fl MCH 27.9 (25.7-32.2) pg MCHC 35.4 (32.2-35.5) g/dl RDW Std Deviation 37.0 (35.1-43.9) fL Plt Count 280 (163-337) K/mm3 MPV 9.6 (9.4-12.3) fl Neut % (Auto) 58.2 (34.0-67.9) % Lymph % (Auto) 29.7 (21.8-53.1) % Pope % (Auto) 8.5 (5.3-12.2) % Eos % (Auto) 3.1 (0.8-7.0) Baso % (Auto) 0.2 (0.1-1.2) % Neut # (Auto) 5.09 (1.78-5.38) K/mm3 Lymph # (Auto) 2.60 (1.32-3.57) K/mm3 Pope # (Auto) 0.74 (0.30-0.82) K/mm3 Eos # (Auto) 0.27 (0.04-0.54) K/mm3 Baso # (Auto) 0.02 (0.01-0.08) K/mm3 Sodium 136 (136-145) mEq/L Potassium 3.4 L (3.5-5.1) mEq/L Chloride 99 (98-107) mEq/L Carbon Dioxide 24 (21-32) mEq/L Anion Gap 16.4 H (5-15) BUN 15 (7-18) mg/dL Creatinine 1.0 (0.7-1.3) mg/dL Est Cr Clr Drug Dosing 102.49 mL/min Estimated GFR (MDRD) > 60 (>60) mL/min BUN/Creatinine Ratio 15.0 (14-18) Glucose 245 H (74-106) mg/dL POC Glucose 295 H (70-105) mg/dL Calcium 9.5 (8.5-10.1) mg/dL Magnesium 1.6 L (1.8-2.4) mg/dl Ur Random Creatinine (30.0-125.0) mg/dL Ur Random Microalbumin (1.3-20.0) mg/L Microalb/Creat Ratio (0-30) mg/g 08/25/18 Range/Units 06:19 WBC (4.23-9.07) K/mm3 RBC (4.63-6.08) M/mm3 Hgb (13.7-17.5) gm/L Hct (40.1-51.0) % MCV (79.0-92.2) fl MCH (25.7-32.2) pg MCHC (32.2-35.5) g/dl RDW Std Deviation (35.1-43.9) fL Plt Count (163-337) K/mm3 MPV (9.4-12.3) fl Neut % (Auto) (34.0-67.9) % Lymph % (Auto) (21.8-53.1) % Pope % (Auto) (5.3-12.2) % Eos % (Auto) (0.8-7.0) Baso % (Auto) (0.1-1.2) % Neut # (Auto) (1.78-5.38) K/mm3 Lymph # (Auto) (1.32-3.57) K/mm3 Pope # (Auto) (0.30-0.82) K/mm3 Eos # (Auto) (0.04-0.54) K/mm3 Baso # (Auto) (0.01-0.08) K/mm3 Sodium (136-145) mEq/L Potassium (3.5-5.1) mEq/L Chloride (98-107) mEq/L Carbon Dioxide (21-32) mEq/L Anion Gap (5-15) BUN (7-18) mg/dL Creatinine (0.7-1.3) mg/dL Est Cr Clr Drug Dosing mL/min Estimated GFR (MDRD) (>60) mL/min BUN/Creatinine Ratio (14-18) Glucose (74-106) mg/dL POC Glucose 255 H (70-105) mg/dL Calcium (8.5-10.1) mg/dL Magnesium (1.8-2.4) mg/dl Ur Random Creatinine (30.0-125.0) mg/dL Ur Random Microalbumin (1.3-20.0) mg/L Microalb/Creat Ratio (0-30) mg/g Med Orders - Current: Current Medications Acetaminophen (Tylenol) 650 mg PO Q4H PRN PRN Reason: Pain (Mild 1-3)/fever Hydrocodone Bitart/Acetaminophen ([place] 325-5 Mg) 1 tab PO Q4H PRN PRN Reason: Pain (moderate 4-6) Albuterol/Ipratropium (Duoneb 3.0-0.5 Mg/3 Ml) 3 ml NEB Q4H PRN PRN Reason: Shortness Of Breath/wheezing Amlodipine Besylate (Norvasc) 5 mg PO BID [facility] Last Admin: 08/25/18 08:32 Dose: 5 mg Benzonatate (Tessalon Perles) 200 mg PO BID [facility] Last Admin: 08/25/18 08:32 Dose: 200 mg Bisacodyl (Dulcolax) 5 mg PO DAILY PRN PRN Reason: Constipation Cholecalciferol (Vitamin D3) 5,000 unit PO BEDTIME [facility] Last Admin: 08/24/18 20:37 Dose: 5,000 unit Clonidine HCl (Catapres) 0.1 mg PO Q12HR [facility] Stop: 08/25/18 21:01 Last Admin: 08/25/18 08:32 Dose: 0.1 mg Docusate Sodium (Colace) 100 mg PO BID PRN PRN Reason: Constipation Guaifenesin/Phenylephrine HCl (Robitussin Dm) 10 ml PO Q4H PRN PRN Reason: Cough Hydralazine HCl (Apresoline) 20 mg IVPUSH Q4H PRN PRN Reason: Hypertension Last Admin: 08/24/18 21:47 Dose: 20 mg Hydrochlorothiazide (Hydrochlorothiazide) 12.5 mg PO BIDDIURETIC [facility] Last Admin: 08/25/18 06:20 Dose: 12.5 mg Hydromorphone HCl (Dilaudid) 0.25 mg IVPUSH Q2H PRN PRN Reason: Pain (severe 7-10) Promethazine HCl 6.25 mg/ (Sodium Chloride) 50.25 mls @ 100 mls/hr IV Q6H PRN PRN Reason: Nausea/Vomiting Magnesium Sulfate 2 gm/ Premix 50 mls @ 25 mls/hr IV ONETIME ONE Stop: 08/25/18 11:29 Insulin Human Lispro (Humalog) 0 unit SUBCUT QIDACANDBED [facility]; Protocol Last Admin: 08/25/18 08:32 Dose: 9 units Lorazepam (Ativan) 2 mg IVPUSH Q4H PRN PRN Reason: Seizures Lorazepam (Ativan) 0.5 mg IV Q6H PRN PRN Reason: Anxiety Losartan Potassium (Cozaar) 25 mg PO DAILY [facility] Last Admin: 08/25/18 08:32 Dose: 25 mg Magnesium Sulfate (Pharmacy To Dose - Magnesium Replacement) 1 dose .XX ASDIRECTED PRN PRN Reason: RX TO WATCH MG LEVELS Metformin HCl (Glucophage) 1,000 mg PO BIDMEALS [facility] Last Admin: 08/25/18 06:21 Dose: 1,000 mg Metoprolol Tartrate (Lopressor) 5 mg IVPUSH Q4H PRN PRN Reason: Tachycardia Miscellaneous Information (Remove Patch) 1 ea TRDERM ONETIME ONE Stop: 08/30/18 20:01 Ondansetron HCl (Zofran) 4 mg IV Q6H PRN PRN Reason: Nausea/Vomiting Oxymetazoline HCl (Afrin Original 0.05% Nasal [place]) 0 ml JOSE ANGEL Q12H PRN PRN Reason: Congestion Polyethylene Glycol (Miralax) 17 gm PO DAILY PRN PRN Reason: Constipation Potassium Chloride (Pharmacy To Dose - Potassium Replacement) 1 dose .XX ASDIRECTED PRN PRN Reason: RX TO WATCH K+ LEVELS Potassium Chloride (Klor-Con M20) 40 meq PO ONETIME ONE Stop: 08/25/18 09:31 Senna/Docusate Sodium (Senna Plus) 1 tab PO BID PRN PRN Reason: Constipation Simvastatin (Zocor) 40 mg PO BEDTIME [facility] Last Admin: 08/24/18 20:38 Dose: 40 mg Temazepam (Restoril) 15 mg PO BEDTIME PRN PRN Reason: Sleep Last Admin: 08/24/18 21:44 Dose: 15 mg Discontinued Medications Amlodipine Besylate (Norvasc) 10 mg PO ONETIME ONE Stop: 08/23/18 16:29 Last Admin: 08/23/18 16:57 Dose: 10 mg Amlodipine Besylate (Norvasc) 10 mg PO BEDTIME [facility] Amlodipine Besylate (Norvasc) 5 mg PO BEDTIME [facility] Clonidine HCl (Catapres-Tts 3) 0.3 mg TRDERM ONETIME ONE Stop: 08/23/18 19:03 Last Admin: 08/23/18 20:08 Dose: 0.3 mg Clonidine HCl (Catapres) 0.2 mg PO ONETIME ONE Stop: 08/23/18 19:03 Last Admin: 08/23/18 20:09 Dose: 0.2 mg Enalaprilat (Vasotec Iv) 1.25 mg IVPUSH ONETIME ONE Stop: 08/23/18 17:34 Last Admin: 08/23/18 17:59 Dose: 1.25 mg Hydralazine HCl (Apresoline) 10 mg IVPUSH ONETIME ONE Stop: 08/23/18 16:19 Last Admin: 08/23/18 16:34 Dose: 10 mg Lactated Ringer's (Ringers, Lactated) 1,000 mls @ 999 mls/hr IV ASDIRECTED [facility] Last Admin: 08/23/18 14:31 Dose: 999 mls/hr Potassium Chloride/Sodium Chloride (Normal Saline With 40 Meq Kcl) 1,000 mls @ 100 mls/hr IV ASDIRECTED [facility] Last Admin: 08/24/18 02:52 Dose: 100 mls/hr Insulin Human Regular (Humulin R) 10 unit SUBCUT ONETIME ONE Stop: 08/23/18 14:00 Last Admin: 08/23/18 14:30 Dose: 10 units Lisinopril (Prinivil) 20 mg PO DAILY [facility] Magnesium Oxide (Magnesium Oxide) 400 mg PO ONETIME ONE Stop: 08/23/18 19:01 Last Admin: 08/23/18 20:10 Dose: 400 mg Magnesium Oxide (Magnesium Oxide) 800 mg PO ONETIME ONE Stop: 08/24/18 09:01 Last Admin: 08/24/18 09:06 Dose: 800 mg Metformin HCl (Glucophage) 1,000 mg PO BIDMEALS [facility] Metformin HCl (Glucophage) 500 mg PO BIDMEALS [facility] Last Admin: 08/24/18 17:29 Dose: 500 mg Oxymetazoline HCl (Nasal Decongestant [place]) 0 ml JOSE ANGEL Q12HR PRN PRN Reason: Congestion Potassium Chloride (Klor-Con M20) 40 meq PO Q4H [facility] Stop: 08/24/18 03:01 Last Admin: 08/24/18 02:52 Dose: 40 meq Simvastatin (Zocor) 20 mg PO BEDTIME [facility] Last Admin: 08/23/18 21:20 Dose: 20 mg Temazepam (Restoril) 7.5 mg PO BEDTIME PRN PRN Reason: Sleep Last Admin: 08/23/18 22:45 Dose: 7.5 mg - Exam General: Alert, Oriented, Cooperative, No Acute Distress HEENT: Pupils Equal, Pupils Reactive, EOMI, Mucous Membr. Moist/[place] Neck: Supple Lungs: Clear to Auscultation, Normal Respiratory Effort Cardiovascular: Regular Rate, Regular Rhythm GI/Abdominal Exam: Normal Bowel Sounds, Soft, Non-Tender, No Organomegaly, No Distention, No Abnormal Bruit (Male) Exam: Deferred Back Exam: Normal Inspection, Decreased Range of Motion Extremities: Normal Inspection, Normal Range of Motion, Non-Tender, No Pedal Edema, Normal Capillary Refill Peripheral Pulses: 2+: Dorsalis Pedis (L), Dorsalis Pedis (R) Skin: Warm, Dry, Intact Neurological: No New Focal Deficit, Normal Gait Psy/Mental Status: Alert, Normal Affect, Normal Mood - Problem List Review Problem List Initiated/Reviewed/Updated: Yes - My Orders Last 24 Hours: My Active Orders 08/24/18 09:00 Losartan [Cozaar] 25 mg PO DAILY Oxymetazoline [Afrin Original 0.05% Nasal [place]] 0 ml JOSE ANGEL Q12H PRN cloNIDine [Catapres] 0.1 mg PO Q12HR 08/24/18 09:39 Temazepam [Restoril] 15 mg PO BEDTIME PRN 08/24/18 21:00 Cholecalciferol (Vitamin D3) [Vitamin D3] 5,000 unit PO BEDTIME Simvastatin [Zocor] 40 mg PO BEDTIME amLODIPine [Norvasc] 5 mg PO BID 08/25/18 07:00 metFORMIN [Glucophage] 1,000 mg PO BIDMEALS 08/25/18 09:30 Magnesium Sulfate/Water [Magnesium Sulfate 2 GM in Water 50 ML] 2 gm Premix Bag 1 bag IV ONETIME Potassium Chloride [Klor-Con M20] 40 meq PO ONETIME ONE 08/26/18 05:11 BASIC METABOLIC PANEL,BMP [CHEM] AM CBC WITH AUTO DIFF [HEME] AM MAGNESIUM [CHEM] AM 08/30/18 20:00 Remove Patch 1 jennifer LOCK ONETIME ONE - Plan Plan:: Assessment/Plan: Acute: Influenza A Infection - Overcoming symptoms for 5 days now - No need for antiviral agent as he is now outside the window - Symptoms improving - Continue supportive care Malignant HTN, Continues to Improve - Documented BPS in ED in the triple digits diastolic and SBP as high as 180s ; BPs: Mid 150s/upper 90s - Received initial treatment in ED but w/o much improvement - Hold ACEI due to dry cough - Continue Norvasc 5 mg po BID, HCTZ 12.5 mg po BID, Clonidine 0.3 patch x1, PRN IVP Hydralazine 20 mg for BP > than 150/90 and Losartan 25 mg po daily Hyperglycemia with DM2, Improved - BS in the 300s; now in the mid 200s - A1C is 9.80; Ketones level is 0.17 - He is only on Metformin 500 mg po BID; Continue Metformin 1000 mg po BID - Received 10 units of regular insulin in ED x1 - Accu-check A/C with Medium dose ISS; Switched ISS to High dose - Thyroid Panel- normal - Microalbumin 43.8 (elevated); was on ACEI but held due to dry cough; now ARB for renal protection - Dietary and Wiring [employer] Class II Obese - BMI of 35.6 - Counseled on LSM - Dietary consult for weight management Erectile Dysfunction - Likely secondary to underlying diabetes - Unable to achieve and maintain an erection - He is not on narcotics - Ordered testosterone level; pending - Advised LSM and defer PDE-5 Inhibitor Hypomagnesemia - Mg is 1.6--> 1.7--> 1.6 - 2/2 poor oral intake - Replete and monitor Resolved: S/p Hypokalemia - K of 3.2--> 3.8 - 2/2 inadequate intake - Replete and monitor 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
[2018-08-25] MEDS ORDERED: Potassium Chloride 20 MEQ Tab.ER PO ONE (09:30)
[2018-08-25] MEDS ORDERED: Magnesium Sulfate/Water 2 GM in Premix Bag 1 BAG IV ONE (09:30)
[2018-08-25] MEDS ORDERED: glipiZIDE 5 MG Tab.ER PO STA (09:47)
[2018-08-25] MEDS: hydrALAZINE 20 MG/ML SDV IVPUSH PRN (17:14)
[2018-08-25] MEDS: Acetaminophen 325 MG Tab PO PRN (17:14)
[2018-08-25] MEDS: glipiZIDE 5 MG Tab.ER PO SCH ×2 (20:46→20:59)
[2018-08-25] MEDS: Cholecalciferol (Vitamin D3) 5,000 UNIT Tab PO SCH (20:50)
[2018-08-25] MEDS: Simvastatin 40 MG Tab PO SCH (20:51)
[2018-08-25] MEDS: Temazepam 15 MG Cap PO PRN (20:59)
[2018-08-26] MEDS: Hydrochlorothiazide 12.5 MG Cap PO SCH ×2 (05:41→15:28)
[2018-08-26] MEDS: hydrALAZINE 20 MG/ML SDV IVPUSH PRN (05:41)
[2018-08-26] MEDS: Insulin Lispro 100 Units/ML 3 ML Vial SUBCUT SCH ×2 (08:32→12:03)
[2018-08-26] MEDS: glipiZIDE 5 MG Tab.ER PO SCH (08:34)
[2018-08-26] MEDS: metFORMIN 500 MG Tab PO SCH (08:34)
[2018-08-26] MEDS: Losartan 25 MG Tab PO SCH (08:35)
[2018-08-26] MEDS: amLODIPine 5 MG Tab PO SCH (08:35)
[2018-08-26 08:36] VITALS: BP 142/80
[2018-08-26] MEDS: Benzonatate 100 MG Cap PO SCH (08:36)
[2018-08-26] MEDS: Acetaminophen 325 MG Tab PO PRN (08:42)
[2018-08-26] MEDS ORDERED: Potassium Chloride 10 MEQ in Premix Bag 1 BAG IV SCH (08:45)
[2018-08-26] MEDS ORDERED: Magnesium Oxide 400 MG Tab PO ONE (08:45)
[2018-08-26] MEDS ORDERED: Potassium Chloride 20 MEQ Tab.ER PO ONE ×2 (09:00→09:14)
[2018-08-26] MEDS ORDERED: Sodium Chloride 0.9% 1,000 ML IV SCH (09:00)
--- NOTE | 2018-08-26 12:07 | PCM.DCSUM1 ---
Discharge Summary - Hospital Course HPI Initial Comments: This is a 43 yo white male with past medical hx/o Impaired Vision (Right Eye due to DM), DM2, HTN, HLD, Hx/o Urinary Retention, Hx/o NHL on remission since 2006, Chronic Dry Cough on ACEI and Class II Obesity who comes in for worsening acute viral illness; subsequently diagnosed with Influenza A and Hyperglycemia with DM2. His symptoms started 5 days ago. He has not received treatment for antiviral agent. He takes 500 mg of Metformin BID. He seldom checks his glucose but on presentation he was found to in the 300s. While in ED, he was noted to have uncontrolled blood with SBPs in the 180s and DBPs in the triple digits. His initial work up in ED shows a CBC remarkable for MCV of 78.3, MCHC of 35.9, and Neutrophils of 43%. His chemistry is significant fo K of 3.2, AG of 15.2, BS of 343, A1C of 9.80, Mg of 106, and Iron of 46. His ketones level is 0.17. He received initial treatment before he was sent to the floor for further treatment. He is being admitted for acute viral illness, malignant hypertension and hyperglycemia due to DM2. Diagnosis: Stroke: No - Discharge Data Discharge Date: 08/26/18 Discharge Disposition: Home, Self-Care 01 Condition: Good - Discharge Diagnosis/Problem(s) (1) Obesity (BMI 30-39.9) SNOMED Code(s): 039440623, 873201711 ICD Code: E66.9 - OBESITY, UNSPECIFIED Status: Acute Current Visit: Yes (2) Erectile disorder due to medical condition in male SNOMED Code(s): 919015922 ICD Code: N52.1 - ERECTILE DYSFUNCTION DUE TO DISEASES CLASSIFIED ELSEWHERE Status: Acute Current Visit: Yes (3) Hypomagnesemia SNOMED Code(s): 489995188 ICD Code: E83.42 - HYPOMAGNESEMIA Status: Acute Current Visit: Yes (4) Hypokalemia SNOMED Code(s): 37673831 ICD Code: E87.6 - HYPOKALEMIA Status: Resolved Current Visit: Yes (5) Influenza A SNOMED Code(s): 070390536 ICD Code: J10.1 - FLU DUE TO OTH IDENT INFLUENZA VIRUS W OTH RESP MANIFEST Status: Acute Current Visit: Yes (6) Uncontrolled hypertension SNOMED Code(s): 28961429, 45567401 ICD Code: I10 - ESSENTIAL (PRIMARY) HYPERTENSION Status: Resolved Current Visit: Yes (7) Hyperglycemia due to type 2 diabetes mellitus SNOMED Code(s): 998918126493071, 939863953581218 ICD Code: E11.65 - TYPE 2 DIABETES MELLITUS WITH HYPERGLYCEMIA Status: Resolved Current Visit: No Qualifiers: Diabetes mellitus longterm insulin use: without rat exterminator use Qualified Code(s): E11.65 - Type 2 diabetes mellitus with hyperglycemia - Patient Summary/Data Operative Procedure(s) Performed: None Complications: None Consults: Consultations 08/23/18 18:25 Consult to Case Management/Education Coordinator [CONS] Routine Consult to Diabetic Nurse Specialist [CONS] Routine Consult to Telecom Specialist [CONS] Routine Labs Pending at D/C: None Recommended Follow-up Testing/Procedures: None Planned Operative Procedure(s) after DC: None Hospital Course: The patient was primarily admitted for lingering viral infection and was found with malignant hypertion and hyperlgycemia. He received mainly conservative treatment and anti-hyperlycemic agents. She slowly improved on this rgeimen. As for his mailgnant hypertension, we felt that was due to his current illness which prevent from able to received seduate sustenance and being able to taek his oral. However with anti-hypertesnive agents, he immediate stabilized. His hsopital course was uncomplicated and the rest of his chronic medical illness remained stable duriong this admission. Patient will be going home with new diabetic regimen. [facility] discussed with him and they were provided reading materials aswell. He was - Patient Instructions Diet: Heart Healthy Diet, Low Sodium, Diabetic Diet, Weight Loss Diet Diet, Other: drink adequate fluids Activity: As Tolerated Driving: May Drive Today Showering/Bathing: May Shower Notify Provider of: Fever, Increased Pain, Drainage, Nausea and/or Vomiting Other/Special Instructions: - Please take all new medications as directed. - Resume all home medications and routine home activities as tolerated. - Recommend follow up BMP and Mg in 1 week through your PCP's office. - Recommend you follow wind turbine engineer's and parent educator's instructions. - Please check blood pressure 3x/day and show log on follow up appointment with your PCP. - Please check glucose 4x/day and show log on follow up appointment with your PCP. - Call or follow up with your PCP for any questions or concerns after discharge. - Follow up with your PCP in 1 week with repeat labs. - Come back or seek immediate care should your symptoms persist or get worse - Discharge Plan *PRESCRIPTION DRUG MONITORING PROGRAM REVIEWED*: Not Applicable *COPY OF PRESCRIPTION DRUG MONITORING REPORT IN PATIENT MUNA: Not Applicable Prescriptions/Med Rec: amLODIPine Besylate [Norvasc] 5 mg PO BID #60 tablet Aspirin 81 mg PO BEDTIME #30 tab.chew atorvaSTATin [Lipitor] 40 mg PO BEDTIME #60 tablet Cholecalciferol (Vitamin D3) [Vitamin D3] 5,000 unit PO BEDTIME #30 tablet Empagliflozin [Jardiance] 25 mg PO DAILY #30 tablet Liraglutide [Victoza 3-Rahat] 18 mg SUBCUT ASDIRECTED #2 pen Losartan [Cozaar] 25 mg PO DAILY #30 tablet Magnesium Oxide 800 mg PO DAILY #4 tab Potassium Chloride [K-Tab ER] 20 meq PO ASDIRECTED #5 tablet.er sitaGLIPtin Phos/Metformin HCl [Janumet 50-500 MG] 1 tab PO ASDIRECTED #60 tab Home Medications: Home Meds Multivitamin [Multiple Vitamins] 1 tab PO DAILY 08/23/18 [History] Aspirin 81 mg PO BEDTIME #30 tab.chew 08/25/18 [Rx] Cholecalciferol (Vitamin D3) [Vitamin D3] 5,000 unit PO BEDTIME #30 tablet 08/25 [Rx] Empagliflozin [Jardiance] 25 mg PO DAILY #30 tablet 08/25/18 [Rx] Liraglutide [Victoza 3-Rahat] 18 mg SUBCUT ASDIRECTED #2 pen 08/25/18 [Rx] Losartan [Cozaar] 25 mg PO DAILY #30 tablet 08/25/18 [Rx] amLODIPine Besylate [Norvasc] 5 mg PO BID #60 tablet 08/25/18 [Rx] atorvaSTATin [Lipitor] 40 mg PO BEDTIME #60 tablet 08/25/18 [Rx] sitaGLIPtin Phos/Metformin HCl [Janumet 50-500 MG] 1 tab PO ASDIRECTED #60 tab 08/25/18 [Rx] Magnesium Oxide 800 mg PO DAILY #4 tab 08/26/18 [Rx] Potassium Chloride [K-Tab ER] 20 meq PO ASDIRECTED #5 tablet.er 08/26/18 [Rx] Patient Handouts: Influenza, Adult, [id number], Hypomagnesemia, Hypokalemia, Hyperglycemia, [id number], Preventing Hypertension, Erectile Dysfunction, Managing Your Hypertension, Type 2 Diabetes Mellitus, Diagnosis, Adult, Easy-to- Read, Obesity, Adult, [id number] Referrals: Ryan Regalado PA-C [Physician Qa Test Analyst] - 08/31/18 11:30 am (Please see Ryan Regalado on August 31 @ 11:30am at [facility].) - Discharge Summary/Plan Comment DC Time >30 min.: Yes (45 mins) Discharge Summary/Plan Comment: Discharge to Home - General Info Date of Service: 08/26/18 Admission Dx/Problem (Free Text: Admission Diagnosis/Problem Admission Diagnosis/Problem Influenza due to influenza A subtype H1N1 virus Subjective Update: Follow Up Functional Status: Reports: Pain Controlled, Tolerating Diet, Ambulating, Urinating. Denies: New Symptoms - Review of Systems General: Denies: Fever, Weakness, Fatigue, Malaise, Chills HEENT: Reports: No Symptoms Pulmonary: Reports: Cough. Denies: Shortness of Breath, Pleuritic Chest Pain Cardiovascular: Denies: Chest Pain, Dyspnea on Exertion, Lightheadedness Gastrointestinal: Denies: Abdominal Pain, Nausea, Vomiting Genitourinary: Reports: No Symptoms Musculoskeletal: Denies: Shoulder Pain, Arm Pain, Joint Swelling Skin: Denies: Cyanosis, Mottled, Pallor, Diaphoresis, Pruritis, Rash Neurological: Denies: Confusion, Difficulty Walking, Weakness, Gait Disturbance Psychiatric: Denies: Depression, Anxiety, Agitation, Hallucinations - Patient Data Vitals - Most Recent: Last Vital Signs Temp 36.6 C 08/26/18 08:19 Pulse 84 08/26/18 08:19 Resp 15 08/26/18 08:19 BP 142/80 H 08/26/18 08:35 Pulse Ox 94 L 08/26/18 08:19 Orthostatic Blood Pressure [ 152/88 Standing] Orthostatic Blood Pressure [ 159/104 Sitting] Orthostatic Blood Pressure [ 151/93 Supine] Weight - Most Recent: 112.219 kg I&O - Last 24 hours: Intake & Output 08/25/18 08/26/1808/26/19 22:59 06:59 14:59 Intake Total 1470 450 620 Output Total 700 Balance 770 450 620 Lab Results - Last 24 hrs: Laboratory Results - last 24 hr 08/25/18 08/25/18 08/26/18 Range/Units 17:02 21:02 05:55 WBC (4.23-9.07) K/mm3 RBC (4.63-6.08) M/mm3 Hgb (13.7-17.5) gm/L Hct (40.1-51.0) % MCV (79.0-92.2) fl MCH (25.7-32.2) pg MCHC (32.2-35.5) g/dl RDW Std Deviation (35.1-43.9) fL Plt Count (163-337) K/mm3 MPV (9.4-12.3) fl Neut % (Auto) (34.0-67.9) % Lymph % (Auto) (21.8-53.1) % [place] % (Auto) (5.3-12.2) % Eos % (Auto) (0.8-7.0) Baso % (Auto) (0.1-1.2) % Neut # (Auto) (1.78-5.38) K/mm3 Lymph # (Auto) (1.32-3.57) K/mm3 [place] # (Auto) (0.30-0.82) K/mm3 Eos # (Auto) (0.04-0.54) K/mm3 Baso # (Auto) (0.01-0.08) K/mm3 Sodium (136-145) mEq/L Potassium (3.5-5.1) mEq/L Chloride (98-107) mEq/L Carbon Dioxide (21-32) mEq/L Anion Gap (5-15) BUN (7-18) mg/dL Creatinine (0.7-1.3) mg/dL Est Cr Clr Drug Dosing mL/min Estimated GFR (MDRD) (>60) mL/min BUN/Creatinine Ratio (14-18) Glucose (74-106) mg/dL POC Glucose 181 H 114 H 184 H (70-105) mg/dL Calcium (8.5-10.1) mg/dL Magnesium (1.8-2.4) mg/dl 03/15/19 03/15/19 03/15/19 Range/Units 07:00 07:00 11:17 WBC 7.24 (4.23-9.07) K/mm3 RBC 5.69 (4.63-6.08) M/mm3 Hgb 15.8 (13.7-17.5) gm/L Hct 45.2 (40.1-51.0) % MCV 79.4 (79.0-92.2) fl MCH 27.8 (25.7-32.2) pg MCHC 35.0 (32.2-35.5) g/dl RDW Std Deviation 37.4 (35.1-43.9) fL Plt Count 240 (163-337) K/mm3 MPV 9.6 (9.4-12.3) fl Neut % (Auto) 60.1 (34.0-67.9) % Lymph % (Auto) 27.6 (21.8-53.1) % [place] % (Auto) 8.1 (5.3-12.2) % Eos % (Auto) 3.5 (0.8-7.0) Baso % (Auto) 0.3 (0.1-1.2) % Neut # (Auto) 4.35 (1.78-5.38) K/mm3 Lymph # (Auto) 2.00 (1.32-3.57) K/mm3 [place] # (Auto) 0.59 (0.30-0.82) K/mm3 Eos # (Auto) 0.25 (0.04-0.54) K/mm3 Baso # (Auto) 0.02 (0.01-0.08) K/mm3 Sodium 136 (136-145) mEq/L Potassium 2.7 L (3.5-5.1) mEq/L Chloride 101 (98-107) mEq/L Carbon Dioxide 25 (21-32) mEq/L Anion Gap 12.7 (5-15) BUN 15 (7-18) mg/dL Creatinine 0.8 (0.7-1.3) mg/dL Est Cr Clr Drug Dosing 127.59 mL/min Estimated GFR (MDRD) > 60 (>60) mL/min BUN/Creatinine Ratio 18.8 H (14-18) Glucose 176 H (74-106) mg/dL POC Glucose 166 H (70-105) mg/dL Calcium 9.1 (8.5-10.1) mg/dL Magnesium 1.7 L (1.8-2.4) mg/dl Med Orders - Current: Current Medications Acetaminophen (Tylenol) 650 mg PO Q4H PRN PRN Reason: Pain (Mild 1-3)/fever Last Admin: 08/26/18 08:42 Dose: 650 mg Hydrocodone Bitart/Acetaminophen ([place] 325-5 Mg) 1 tab PO Q4H PRN PRN Reason: Pain (moderate 4-6) Albuterol/Ipratropium (Duoneb 3.0-0.5 Mg/3 Ml) 3 ml NEB Q4H PRN PRN Reason: Shortness Of Breath/wheezing Amlodipine Besylate (Norvasc) 5 mg PO BID [facility] Last Admin: 08/26/18 08:35 Dose: 5 mg Benzonatate (Tessalon Perles) 200 mg PO BID [facility] Last Admin: 08/26/18 08:36 Dose: 200 mg Bisacodyl (Dulcolax) 5 mg PO DAILY PRN PRN Reason: Constipation Cholecalciferol (Vitamin D3) 5,000 unit PO BEDTIME [facility] Last Admin: 08/25/18 20:50 Dose: 5,000 unit Docusate Sodium (Colace) 100 mg PO BID PRN PRN Reason: Constipation Glipizide (Glucotrol Xl) 5 mg PO BID [facility] Last Admin: 08/26/18 08:34 Dose: 5 mg Guaifenesin/Phenylephrine HCl (Robitussin Dm) 10 ml PO Q4H PRN PRN Reason: Cough Hydralazine HCl (Apresoline) 20 mg IVPUSH Q4H PRN PRN Reason: Hypertension Last Admin: 08/26/18 05:41 Dose: 20 mg Hydrochlorothiazide (Hydrochlorothiazide) 12.5 mg PO BIDDIURETIC [facility] Last Admin: 08/26/18 05:41 Dose: 12.5 mg Hydromorphone HCl (Dilaudid) 0.25 mg IVPUSH Q2H PRN PRN Reason: Pain (severe 7-10) Promethazine HCl 6.25 mg/ (Sodium Chloride) 50.25 mls @ 100 mls/hr IV Q6H PRN PRN Reason: Nausea/Vomiting Sodium Chloride (Normal Saline) 1,000 mls @ 100 mls/hr IV ASDIRECTED [facility] Insulin Human Lispro (Humalog) 0 unit SUBCUT QIDACANDBED [facility]; Protocol Last Admin: 08/26/18 12:03 Dose: 3 units Lorazepam (Ativan) 2 mg IVPUSH Q4H PRN PRN Reason: Seizures Lorazepam (Ativan) 0.5 mg IV Q6H PRN PRN Reason: Anxiety Losartan Potassium (Cozaar) 25 mg PO DAILY [facility] Last Admin: 08/26/18 08:35 Dose: 25 mg Magnesium Sulfate (Pharmacy To Dose - Magnesium Replacement) 1 dose .XX ASDIRECTED PRN PRN Reason: RX TO WATCH MG LEVELS Metformin HCl (Glucophage) 1,000 mg PO BIDMEALS [facility] Last Admin: 08/26/18 08:34 Dose: 1,000 mg Metoprolol Tartrate (Lopressor) 5 mg IVPUSH Q4H PRN PRN Reason: Tachycardia Miscellaneous Information (Remove Patch) 1 ea TRDERM ONETIME ONE Stop: 08/30/18 20:01 Ondansetron HCl (Zofran) 4 mg IV Q6H PRN PRN Reason: Nausea/Vomiting Oxymetazoline HCl (Afrin Original 0.05% Nasal [place]) 0 ml JOSE ANGEL Q12H PRN PRN Reason: Congestion Polyethylene Glycol (Miralax) 17 gm PO DAILY PRN PRN Reason: Constipation Potassium Chloride (Pharmacy To Dose - Potassium Replacement) 1 dose .XX ASDIRECTED PRN PRN Reason: RX TO WATCH K+ LEVELS Senna/Docusate Sodium (Senna Plus) 1 tab PO BID PRN PRN Reason: Constipation Simvastatin (Zocor) 40 mg PO BEDTIME [facility] Last Admin: 08/25/18 20:51 Dose: 40 mg Temazepam (Restoril) 15 mg PO BEDTIME PRN PRN Reason: Sleep Last Admin: 08/25/18 20:59 Dose: 15 mg Discontinued Medications Amlodipine Besylate (Norvasc) 10 mg PO ONETIME ONE Stop: 08/23/18 16:29 Last Admin: 08/23/18 16:57 Dose: 10 mg Amlodipine Besylate (Norvasc) 10 mg PO BEDTIME [facility] Amlodipine Besylate (Norvasc) 5 mg PO BEDTIME [facility] Clonidine HCl (Catapres-Tts 3) 0.3 mg TRDERM ONETIME ONE Stop: 08/23/18 19:03 Last Admin: 08/23/18 20:08 Dose: 0.3 mg Clonidine HCl (Catapres) 0.2 mg PO ONETIME ONE Stop: 08/23/18 19:03 Last Admin: 08/23/18 20:09 Dose: 0.2 mg Clonidine HCl (Catapres) 0.1 mg PO Q12HR [facility] Stop: 08/25/18 21:01 Last Admin: 08/25/18 20:51 Dose: 0.1 mg Enalaprilat (Vasotec Iv) 1.25 mg IVPUSH ONETIME ONE Stop: 08/23/18 17:34 Last Admin: 08/23/18 17:59 Dose: 1.25 mg Glipizide (Glucotrol Xl) 5 mg PO NOW STA Stop: 08/25/18 09:48 Last Admin: 08/25/18 10:06 Dose: 5 mg Hydralazine HCl (Apresoline) 10 mg IVPUSH ONETIME ONE Stop: 08/23/18 16:19 Last Admin: 08/23/18 16:34 Dose: 10 mg Lactated Ringer's (Ringers, Lactated) 1,000 mls @ 999 mls/hr IV ASDIRECTED [facility] Last Admin: 08/23/18 14:31 Dose: 999 mls/hr Potassium Chloride/Sodium Chloride (Normal Saline With 40 Meq Kcl) 1,000 mls @ 100 mls/hr IV ASDIRECTED [facility] Last Admin: 08/24/18 02:52 Dose: 100 mls/hr Magnesium Sulfate 2 gm/ Premix 50 mls @ 25 mls/hr IV ONETIME ONE Stop: 08/25/18 11:29 Last Admin: 08/25/18 10:05 Dose: 25 mls/hr Potassium Chloride 10 meq/ (Premix) 100 mls @ 100 mls/hr IV Q1H [facility] Stop: 08/26/18 12:44 Last Admin: 08/26/18 08:44 Dose: 100 mls/hr Insulin Human Regular (Humulin R) 10 unit SUBCUT ONETIME ONE Stop: 08/23/18 14:00 Last Admin: 08/23/18 14:30 Dose: 10 units Lisinopril (Prinivil) 20 mg PO DAILY [facility] Magnesium Oxide (Magnesium Oxide) 400 mg PO ONETIME ONE Stop: 08/23/18 19:01 Last Admin: 08/23/18 20:10 Dose: 400 mg Magnesium Oxide (Magnesium Oxide) 800 mg PO ONETIME ONE Stop: 08/24/18 09:01 Last Admin: 08/24/18 09:06 Dose: 800 mg Magnesium Oxide (Magnesium Oxide) 800 mg PO ONETIME ONE Stop: 08/26/18 08:46 Last Admin: 08/26/18 08:43 Dose: 800 mg Metformin HCl (Glucophage) 1,000 mg PO BIDMEALS [facility] Metformin HCl (Glucophage) 500 mg PO BIDMEALS [facility] Last Admin: 08/24/18 17:29 Dose: 500 mg Oxymetazoline HCl (Nasal Decongestant [place]) 0 ml JOSE ANGEL Q12HR PRN PRN Reason: Congestion Potassium Chloride (Klor-Con M20) 40 meq PO Q4H [facility] Stop: 08/24/18 03:01 Last Admin: 08/24/18 02:52 Dose: 40 meq Potassium Chloride (Klor-Con M20) 40 meq PO ONETIME ONE Stop: 08/25/18 09:31 Last Admin: 08/25/18 10:04 Dose: 40 meq Potassium Chloride (Klor-Con M20) 60 meq PO ONETIME ONE Stop: 08/26/18 09:01 Last Admin: 08/26/18 08:42 Dose: 60 meq Potassium Chloride (Klor-Con M20) 60 meq PO ONETIME ONE Stop: 08/26/18 09:15 Last Admin: 08/26/18 09:25 Dose: 60 meq Simvastatin (Zocor) 20 mg PO BEDTIME [facility] Last Admin: 08/23/18 21:20 Dose: 20 mg Temazepam (Restoril) 7.5 mg PO BEDTIME PRN PRN Reason: Sleep Last Admin: 08/23/18 22:45 Dose: 7.5 mg - Exam General: Reports: Alert, Oriented, Cooperative, No Acute Distress, Other (Obese) HEENT: Reports: Pupils Equal, Pupils Reactive, EOMI, Mucous Membr. Moist/[place]: Reports: Supple Lungs: Reports: Clear to Auscultation, Normal Respiratory Effort Cardiovascular: Reports: Regular Rate, Regular Rhythm GI/Abdominal Exam: Normal Bowel Sounds, Soft, Non-Tender, No Organomegaly, No Distention, No Abnormal Bruit, Other (Obese) (Male) Exam: Deferred Rectal (Males) Exam: Deferred Back Exam: Reports: Normal Inspection, Decreased Range of Motion Extremities: Normal Inspection, Normal Range of Motion, Non-Tender, No Pedal Edema, Normal Capillary Refill Skin: Reports: Warm, Dry, Intact Neurological: Reports: No New Focal Deficit, Normal Gait Psy/Mental Status: Reports: Alert, Normal Affect, Normal Mood
== END 2018-08-26 15:30 | disposition home or self-care (01) | DRG 113 ==
LOC: JD.ED 13:35 → JD.MS 17:30
PROVIDERS: ADMIT Emergency Medicine; ATTEND Internal Medicine
DX: J10.1 Influenza due to other identified influenza virus with other respiratory manifestations (principal); E11.69 Type 2 diabetes mellitus with other specified complication; E11.39 Type 2 diabetes mellitus with other diabetic ophthalmic complication; E11.65 Type 2 diabetes mellitus with hyperglycemia; E83.42 Hypomagnesemia; H54.7 Unspecified visual loss; I10 Essential (primary) hypertension; E78.5 Hyperlipidemia, unspecified; E87.6 Hypokalemia; E78.00 Pure hypercholesterolemia, unspecified; J45.909 Unspecified asthma, uncomplicated; K21.9 Gastro-esophageal reflux disease without esophagitis; N52.8 Other male erectile dysfunction; E86.9 Volume depletion, unspecified; E61.1 Iron deficiency; I95.1 Orthostatic hypotension; E66.9 Obesity, unspecified; Z68.34 Body mass index [BMI] 34.0-34.9, adult; Z88.8 Allergy status to other drugs, medicaments and biological substances; Z79.82 Long term (current) use of aspirin; Z85.72 Personal history of non-Hodgkin lymphomas; Z79.84 Long term (current) use of oral hypoglycemic drugs; Z79.899 Other long term (current) drug therapy
CPT/HCPCS: 36415; 71046; 71046-26; 80048; 80053; 80061; 82009; 82043; 82306; 82947; 82962; 83036; 83540; 83605; 83735; 83930; 84132; 84402; 84403; 84439; 84443; 84466; 84484; 85007; 85025; 85027; 86140; 93005; 93010; 96361; 96372; 96374; 99284-25; 99285; A9270-GY; J0360; J1815-GY; J3475; J3480; J7120